=== PATIENT | male | born 1950 | race Caucasian/White ===

== ENCOUNTER 2020-03-09 07:52 | Observation (INO) | payer MEDICARE, OTHER ==
[2020-03-09] MEDS ORDERED: BABY ASPIRIN 81 MG CHEW PO ONE (07:55)
[2020-03-09] MEDS ORDERED: NITRO-BID 2% UD PACKETS TOP ONE (08:07)
--- NOTE | 2020-03-09 08:11 | ERPHSYRPT ---
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 Today pain woke him up from sleep almost an hour ago, moderate intensity and is currently improving. Today he noticed some radiation to the left shoulder as well as to the shoulder blade area. No significant shortness of breath or palpitations reported. Denies any fever chills cough. No sick contact. Timing/Duration: day(s) (2), intermittent, sudden, improved Activities at Onset: sleep Quality: dullness, sharpness Location: central Chest Pain Radiation: back Severity of Pain-Max: moderate Severity of Pain-Current: mild Modifying Factors: Improves With: nothing Associated Symptoms: denies symptoms Prior Chest Pain/Cardiac Workup: cardiac cath, heart attack Nitro Today/Relief: no nitro taken today Aspirin Treatment Today: no aspirin today Allergies/Adverse Reactions: Sulfa (Sulfonamide Antibiotics) Allergy (Verified 03/09/20 08:07) Home Medications: Carvedilol 6.25 mg [Coreg 6.25 MG] 6.25 mg PO BID 01/17/13 [History] Ranolazine 500 MG [Ranexa 500 MG] 500 mg PO BID 01/17/13 [History] ALPRAZolam [Alprazolam] 0.5 mg PO DAILY 03/09/20 [History] Aspirin EC 81 mg [Ecotrin 81 mg] 81 mg PO DAILY 03/09/20 [History] Atorvastatin Calcium [Lipitor] 80 mg PO DAILY 03/09/20 [History] Clopidogrel Bisulfate 75 mg [PLAVIX 75 MG Tablet] 75 mg PO DAILY 03/09/20 [History] Ezetimibe 10 mg [Zetia 10 MG] 10 mg PO DAILY 03/09/20 [History] Folic Acid/Vit B Complex and C [Folbee Plus Tablet] 5 mg PO DAILY 03/09/20 [History] Pantoprazole Sodium 40 mg PO DAILY 03/09/20 [History] Hx Tetanus, Diphtheria Vaccination/Date Given: Yes (UNKNOWN) Hx Influenza Vaccination/Date Given: Yes Hx Pneumococcal Vaccination/Date Given: Yes Travel Risk - International Travel Have you traveled outside of the country in past 3 weeks: No - Coronavirus Screening Are you exhibiting any of the following symptoms?: No Close contact with a COVID-19 positive Pt in past 14-21 Days: No - Review of Systems Constitutional: No Symptoms Eyes: No Symptoms Ears, Nose, & Throat: No Symptoms Respiratory: No Symptoms Cardiac: Chest Pain Abdominal/Gastrointestinal: No Symptoms Genitourinary Symptoms: No Symptoms Musculoskeletal: No Symptoms Skin: No Symptoms Neurological: No Symptoms Psychological: No Symptoms Endocrine: No Symptoms Hematologic/Lymphatic: No Symptoms - Past Medical History Pertinent Past Medical History: Yes Neurological History: No Pertinent History ENT History: No Pertinent History Cardiac History: Coronary Artery Disease, High Cholesterol, Myocardial Infarction (DC) Respiratory History: No Pertinent History Endocrine Medical History: No Pertinent History Musculoskeletal History: No Pertinent History GI Medical History: Hepatitis History: No Pertinent History Psycho-Social History: No Pertinent History Male Reproductive Disorders: No Pertinent History Other Medical History: ampullary cancer - Past Surgical History Past Surgical History: Yes Neuro Surgical History: No Pertinent History Cardiac: Cardiac Stent Respiratory: No Pertinent History Gastrointestinal: Appendectomy Genitourinary: No Pertinent History Musculoskeletal: No Pertinent History Male Surgical History: No Pertinent History Other Surgical History: 4 stents - Social History Smoking Status: Former smoker Exposure to second hand smoke: Yes Drug Use: none Patient Lives Alone: No - Nursing Vital Signs Nursing Vital Signs: Initial Vital Signs Temperature 98.2 F 03/09/20 07:55 Pulse Rate 61 03/09/20 07:55 Respiratory Rate 18 03/09/20 07:55 Blood Pressure 135/84 03/09/20 07:55 O2 Sat by Pulse Oximetry 97 03/09/20 07:55 Pain Scale Pain Intensity 0 - Physical Exam General Appearance: no apparent distress Eye Exam: PERRL/EOMI Ears, Nose, Throat Exam: normal ENT inspection, pharynx normal Neck Exam: normal inspection Respiratory Exam: normal breath sounds, lungs clear Cardiovascular Exam: regular rate/rhythm, normal heart sounds Gastrointestinal/Abdomen Exam: soft, normal bowel sounds, No tenderness Back Exam: normal inspection Extremity Exam: normal inspection, normal range of motion Neurologic Exam: alert, oriented x 3, cooperative Skin Exam: normal color SpO2 Interpretation: normal SpO2: 97 O2 Delivery: Room Air - Course Nursing assessment & vital signs reviewed: Yes EKG Interpreted by Me: RATE (61), Sinus Rhythm, NORMAL AXIS, LAFB, Q-wave (Anteroseptal) Ordered Tests: Active Orders 24 hr Category Date Time Status Heating And Ventilation Engineer STAT Care 03/09/20 07:56 Active EKG-ER Only STAT Care 03/09/20 07:55 Active IV Insertion STAT Care 03/09/20 07:55 Active Oxygen-ED Only Nasal Cannula 2 lpm Care 03/09/20 07:55 Active CHEST 1 VIEW (PORTABLE) Stat Exams 03/09/20 07:56 Completed CHEST WITH CONTRAST [CT] Stat Exams 03/09/20 09:11 Completed CBC W DIFF Stat Lab 03/09/20 08:12 Completed CMP Stat Lab 03/09/20 08:12 Completed D-DIMER QUANTITATIVE Stat Lab 03/09/20 08:30 Completed NT PRO BNP Stat Lab 03/09/20 08:12 Completed TROPONIN Q3H Lab 03/09/20 08:12 Completed TROPONIN Q3H Lab 03/09/20 11:10 Completed TROPONIN Q3H Lab 03/09/20 14:00 Ordered TROPONIN Q3H Lab 03/09/20 17:00 Ordered TROPONIN Q3H Lab 03/09/20 20:00 Ordered Transfer Order Routine Transfer 03/09/20 Ordered Medication Summary Discontinued Medications Generic Name Dose Route Start Last Admin Trade Name Freq PRN Reason Stop Dose Admin Aspirin 324 mg 03/09/20 07:55 03/09/20 08:02 Baby Aspirin 81 Mg Chew PO 03/09/20 07:56 324 mg STAT ONE Administration Nitroglycerin 1 gm 03/09/20 08:07 03/09/20 08:16 Nitro-Bid 2% Ud Packets TOP 03/09/20 08:08 1 gm STAT ONE Administration Nitroglycerin Confirm 03/09/20 08:15 Nitro-Bid 2% Ud Packets Administered 03/09/20 08:16 Dose 1 gm .ROUTE .STK-MED ONE Lab/Rad Data: Laboratory Result Diagrams 03/09/20 08:12 03/09/20 08:12 Laboratory Results 03/09/20 03/09/20 03/09/20 Range/Units 11:10 08:30 08:12 WBC (4.0-10.5) K/mm3 RBC (4.1-5.6) M/mm3 Hgb (12.5-18.0) gm/dl Hct (42-50) % MCV (78-100) fl MCH (26-32) pg MCHC (32-36) g/dl RDW (11.5-14.0) % Plt Count (150-450) K/mm3 MPV (7.5-11.0) fl Gran % (36.0-66.0) % Eos # (Auto) (0-0.5) Absolute Lymphs (auto) (1.0-4.6) Absolute Monos (auto) (0.0-1.3) Lymphocytes % (24.0-44.0) % Monocytes % (0.0-12.0) % Eosinophils % (0.00-5.0) % Basophils % (0.0-0.4) % Absolute Granulocytes (1.4-6.9) Basophils # (0-0.4) D-Dimer 905 H* (215-500) ng/mL Sodium (137-145) mmol/L Potassium (3.5-5.1) mmol/L Chloride (98-107) mmol/L Carbon Dioxide (22-30) mmol/L Anion Gap (5-15) MEQ/L BUN (9-20) mg/dL Creatinine (0.66-1.25) mg/dL Estimated GFR ML/MIN Glucose (74-106) mg/dL Calcium (8.4-10.2) mg/dL Total Bilirubin (0.2-1.3) mg/dL AST (17-59) U/L ALT (0-50) U/L Alkaline Phosphatase (38-126) U/L Troponin I < 0.012 < 0.012 (0.000-0.034) ng/mL NT-Pro-B Natriuret Pep (0-900) pg/mL Serum Total Protein (6.3-8.2) g/dL Albumin (3.5-5.0) g/dL 03/09/20 03/09/20 Range/Units 08:12 08:12 WBC 8.1 (4.0-10.5) K/mm3 RBC 4.01 L (4.1-5.6) M/mm3 Hgb 12.5 (12.5-18.0) gm/dl Hct 38.5 L (42-50) % MCV 96.0 (78-100) fl MCH 31.2 (26-32) pg MCHC 32.5 (32-36) g/dl RDW 15.1 H (11.5-14.0) % Plt Count 203 (150-450) K/mm3 MPV 9.8 (7.5-11.0) fl Gran % 62.7 (36.0-66.0) % Eos # (Auto) 0.31 (0-0.5) Absolute Lymphs (auto) 1.92 (1.0-4.6) Absolute Monos (auto) 0.73 (0.0-1.3) Lymphocytes % 23.9 L (24.0-44.0) % Monocytes % 9.1 (0.0-12.0) % Eosinophils % 3.9 (0.00-5.0) % Basophils % 0.4 (0.0-0.4) % Absolute Granulocytes 5.06 (1.4-6.9) Basophils # 0.03 (0-0.4) D-Dimer (215-500) ng/mL Sodium 135 L (137-145) mmol/L Potassium 4.2 (3.5-5.1) mmol/L Chloride 102 (98-107) mmol/L Carbon Dioxide 28 (22-30) mmol/L Anion Gap 9.8 (5-15) MEQ/L BUN 13 (9-20) mg/dL Creatinine 0.90 (0.66-1.25) mg/dL Estimated GFR > 60.0 ML/MIN Glucose 241 H (74-106) mg/dL Calcium 9.3 (8.4-10.2) mg/dL Total Bilirubin 1.40 H (0.2-1.3) mg/dL AST 61 H (17-59) U/L ALT 67 H (0-50) U/L Alkaline Phosphatase 79 (38-126) U/L Troponin I (0.000-0.034) ng/mL NT-Pro-B Natriuret Pep 50.3 (0-900) pg/mL Serum Total Protein 7.8 (6.3-8.2) g/dL Albumin 4.2 (3.5-5.0) g/dL - Progress Progress: improved, re-examined Air Movement: good Progress Note: 03/09/20 10:06 He is given aspirin and Nitropaste for symptomatic relief. Patient is breathing better on reevaluation. He does not want any other pain medications. EKG did not show any acute ST elevations. Initial troponins are negative. X-rays did not show any focal consolidation. CT chest is obtained to rule out PE as patient has elevated D-dimers which is negative for pulmonary embolism. It showed questionable airspace disease but patient does not have any symptoms so I will not start him on any antibiotics. Discussed with Dr. Fletcher and patient is being admitted for rule out DC as patient has multiple risk factors for CAD and his high heart score. Plan discussed with patient who understand and agrees with it. Blood Culture(s) Obtained: No Antibiotics given: No Discussed with : Gareth Will see patient in: hospital (observation) Counseled pt/family regarding: lab results, diagnosis, rad results - Departure Departure Disposition: Observation Clinical Impression: Chest pain, rule out acute myocardial infarction Condition: Stable Critical Care Time: No Referrals: ALISIA FLETCHER MD [Primary Care Provider] -
[2020-03-09] MEDS ORDERED: NITRO-BID 2% UD PACKETS ONE (08:15)
[2020-03-09 08:27] LABS: Absolute Neutrophil Ct (ANC) 5.06 (1.4-6.9); BASOPHIL % 0.4 % (0.0-0.4); Basophil (Absolute #) 0.03 (0-0.4); Eosinophil % 3.9 % (0.00-5.0); Eosinophil (Absolute #) 0.31 (0-0.5); Hematocrit 38.5 % (42-50); Hemoglobin 12.5 gm/dl (12.5-18.0); Lymphocyte (Absolute #) 1.92 (1.0-4.6); Lymphocytes % 23.9 % (24.0-44.0); Mean Corpuscular Hemoglobin 31.2 pg (26-32); Mean Corpuscular Hgb Concent. 32.5 g/dl (32-36); Mean Platelet Volume 9.8 fl (7.5-11.0); Monocyte (Absolute #) 0.73 (0.0-1.3); Monocytes % 9.1 % (0.0-12.0); Neutrophil % 62.7 % (36.0-66.0); Platelet Count 203 K/mm3 (150-450); Red Blood Count 4.01 M/mm3 (4.1-5.6); Red Cell Distribution Width 15.1 % (11.5-14.0); White Blood Count 8.1 K/mm3 (4.0-10.5)
[2020-03-09 08:37] LABS: ALBUMIN 4.2 g/dL (3.5-5.0); ALKALINE PHOSPHATASE 79 U/L (38-126); ANION GAP 9.8 MEQ/L (5-15); BLOOD UREA NITROGEN 13 mg/dL (9-20); CHLORIDE 102 mmol/L (98-107); Calcium 9.3 mg/dL (8.4-10.2); Carbon Dioxide 28 mmol/L (22-30); EST GLOMERULAR FILTRATION RATE > 60.0 ML/MIN; Glucose 241 mg/dL (74-106); NT PRO BNP 50.3 pg/mL (0-900); Potassium 4.2 mmol/L (3.5-5.1); SGOT/AST 61 U/L (17-59); SGPT/ALT 67 U/L (0-50); SODIUM 135 mmol/L (137-145); Total Protein 7.8 g/dL (6.3-8.2)
--- NOTE | 2020-03-09 08:58 | XRAY ---
Indication: Chest pain. Comparison: November 25, 2018. Portable chest again demonstrates normal heart and lungs with incidental tiny calcified granulomas and new right Port-A-Cath. Bony thorax intact again with minimal degenerative changes. No acute findings.
--- NOTE | 2020-03-09 10:31 | XRAY ---
Indication: Chest pain. Elevated d-dimer. History ampullary cancer with Whipple procedure. Status post chemotherapy. Multiple contiguous axial images obtained through the chest using 100 cc Isovue 370 contrast and PE protocol. Comparison: April 29, 2008. There is good opacification of the pulmonary arteries to include the lobar and segmental branches. No pulmonary embolus. Heart is not enlarged. New right Port-A-Cath. Aorta remains normal in course and caliber. There is minimally enlarging mediastinal lymph nodes again largest right paratracheal measuring 1.1 x 2.8 cm. Minimally enlarging right hilar adenopathy measuring 1.8 x 2.0 cm. Stable 1.2 x 2.3 cm left axilla adenopathy. Lungs demonstrates new minimal patchy peripheral airspace disease in the left upper and right lower lobes. Elsewhere minimal bilateral dependent atelectasis with stable calcific granulomas bilaterally. No consolidation or effusion. Bony thorax intact. Limited upper abdomen demonstrates interval surgery including cholecystectomy/Whipple procedure with now mild biliary tree prominence and pancreatic duct dilatation up to 7 mm. New multiple scattered centimeter/subcentimeter mesenteric nodes. Stable 4 mm peripheral right lobe hepatic cyst. Impression: 1. Continued negative pulmonary embolus. 2. New minimal patchy left upper and right lower lobe airspace disease without consolidation/effusion. 3. Minimally enlarging mediastinal/right hilar lymph nodes and new small mesenteric nodes. Stable left axilla adenopathy. Rule out primary versus metastatic malignancy. 4. Status post cholecystectomy/Whipple procedure and right Port-A-Cath insertion. 5. Stable tiny hepatic cyst.
[2020-03-09] MEDS ORDERED: PROTONIX 40 MG IV IV SCH (14:49)
[2020-03-09] MEDS ORDERED: MORPHINE SULFATE 2 MG INJ IV PRN (14:49)
[2020-03-09] MEDS ORDERED: Zofran 4 MG/2 ML VIAL IV PRN (14:49)
[2020-03-09] MEDS ORDERED: DUONEB 0.5-3 MG/3 ml Neb IH PRN (14:49)
[2020-03-09] MEDS: TYLENOL 325 MG PO PRN ×2 (15:41→21:13)
[2020-03-09] MEDS ORDERED: Coreg 6.25 MG PO SCH (22:00)
[2020-03-09] MEDS ORDERED: Ranexa 500 MG PO SCH (22:00)
[2020-03-10 06:01] LABS: Absolute Neutrophil Ct (ANC) 7.59 (1.4-6.9); BASOPHIL % 0.4 % (0.0-0.4); Basophil (Absolute #) 0.04 (0-0.4); Eosinophil % 4.5 % (0.00-5.0); Hematocrit 37.9 % (42-50); Hemoglobin 12.4 gm/dl (12.5-18.0); Lymphocyte (Absolute #) 2.14 (1.0-4.6); Lymphocytes % 19.2 % (24.0-44.0); Mean Cell Volume 96.4 fl (78-100); Mean Corpuscular Hemoglobin 31.6 pg (26-32); Mean Corpuscular Hgb Concent. 32.7 g/dl (32-36); Mean Platelet Volume 10.2 fl (7.5-11.0); Monocyte (Absolute #) 0.85 (0.0-1.3); Monocytes % 7.6 % (0.0-12.0); Neutrophil % 68.3 % (36.0-66.0); Platelet Count 204 K/mm3 (150-450); Red Blood Count 3.93 M/mm3 (4.1-5.6); White Blood Count 11.1 K/mm3 (4.0-10.5)
[2020-03-10 06:27] LABS: ALKALINE PHOSPHATASE 74 U/L (38-126); BLOOD UREA NITROGEN 15 mg/dL (9-20); CHLORIDE 103 mmol/L (98-107); Carbon Dioxide 27 mmol/L (22-30); Creatinine 1 0.98 mg/dL (0.66-1.25); EST GLOMERULAR FILTRATION RATE > 60.0 ML/MIN; Glucose 134 mg/dL (74-106); Potassium 4.1 mmol/L (3.5-5.1); SGOT/AST 49 U/L (17-59); SGPT/ALT 57 U/L (0-50); SODIUM 137 mmol/L (137-145); Total Protein 7.4 g/dL (6.3-8.2)
[2020-03-10 08:07] VITALS: BP 126/73; PULSE 63; O2SAT 96
[2020-03-10] MEDS ORDERED: ECOTRIN 81 MG PO SCH (10:00)
[2020-03-10] MEDS ORDERED: Protonix 40MG Tablet PO SCH (10:00)
[2020-03-10] MEDS ORDERED: NON-FORMULARY ITEM (Folic Acid/Vit B Complex And C [Folbee Plus Tablet] 5 MG) PO SCH (10:00)
[2020-03-10] MEDS ORDERED: NON-FORMULARY ITEM (Atorvastatin Calcium [Lipitor] 80 MG) PO SCH (10:00)
[2020-03-10] MEDS ORDERED: FOLTX (FOLBIC) PO SCH (10:00)
[2020-03-10] MEDS ORDERED: ZOCOR 20MG PO SCH (10:00)
[2020-03-10] MEDS ORDERED: xanAX 0.5 MG PO SCH (10:00)
[2020-03-10] MEDS ORDERED: Zetia 10 MG PO SCH (10:00)
[2020-03-10] MEDS ORDERED: PLAVIX 75 MG Tablet PO SCH (10:00)
--- NOTE | 2020-03-10 10:38 | PCM.SSS ---
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 Today pain woke him up from sleep almost an hour ago, moderate intensity and is currently improving. Today he noticed some radiation to the left shoulder as well as to the shoulder blade area. No significant shortness of breath or palpitations reported. Denies any fever chills cough. No sick contact. - Review of Systems Constitutional: No Fever, No Chills Eyes: No Symptoms Ears, Nose, & Throat: No Symptoms Respiratory: No Cough, No Short Of Breath Cardiac: Chest Pain, No Edema, No Syncope Abdominal/Gastrointestinal: No Abdominal Pain, No Nausea, No Vomiting, No Diarrhea Genitourinary Symptoms: No Dysuria Musculoskeletal: No Back Pain, No Neck Pain Skin: No Rash Neurological: No Dizziness, No Focal Weakness, No Sensory Changes Psychological: No Symptoms Endocrine: No Symptoms Hematologic/Lymphatic: No Symptoms Immunological/Allergic: No Symptoms Medications & Allergies Home Medications: Home Medication List Carvedilol 6.25 mg [Coreg 6.25 MG] 6.25 mg PO BID 01/17/13 [History Confirmed 03/09/20] Ranolazine 500 MG [Ranexa 500 MG] 500 mg PO BID 01/17/13 [History Confirmed 03/09/20] ALPRAZolam [Alprazolam] 0.5 mg PO DAILY 03/09/20 [History Confirmed 03/09/20] Aspirin EC 81 mg [Ecotrin 81 mg] 81 mg PO DAILY 03/09/20 [History Confirmed 03/09/20] Atorvastatin Calcium [Lipitor] 80 mg PO DAILY 03/09/20 [History Confirmed 03/09/20] Clopidogrel Bisulfate 75 mg [PLAVIX 75 MG Tablet] 75 mg PO DAILY 03/09/20 [History Confirmed 03/09/20] Ezetimibe 10 mg [Zetia 10 MG] 10 mg PO DAILY 03/09/20 [History Confirmed 03/09/20] Folic Acid/Vit B Complex and C [Folbee Plus Tablet] 5 mg PO DAILY 03/09/20 [History Confirmed 03/09/20] Pantoprazole Sodium 40 mg PO DAILY 03/09/20 [History Confirmed 03/09/20] Allergies/Adverse Reactions: Allergies Allergy/AdvReac Type Severity Reaction Status Date / Time Sulfa (Sulfonamide Allergy Mild Verified 03/09/20 15:00 Antibiotics) - Past Medical History Past Medical History: Yes Neurological History: No Pertinent History ENT History: No Pertinent History Cardiac History: Coronary Artery Disease, High Cholesterol, Myocardial Infarction ([place]) Respiratory History: No Pertinent History Endocrine Medical History: No Pertinent History Musculoskelatal History: No Pertinent History GI Medical History: Hepatitis History: No Pertinent History Pyscho-Social History: No Pertinent History Male Reproductive Disorders: No Pertinent History Comment: ampullary cancer - Past Surgical History Past Surgical History: Yes Neuro Surgical History: No Pertinent History Cardiac History: Cardiac Stent Respiratory Surgery: No Pertinent History GI Surgical History: Appendectomy, Cholecystectomy Genitourinary Surgical Hx: No Pertinent History Musculskeletal Surgical Hx: No Pertinent History Male Surgical History: No Pertinent History Other Surgical History: 4 stents, 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 - Social History Smoking Status: Former smoker Exposure to second hand smoke: Yes Alcohol: None Drug Use: none - Physical Exam Vital Signs: Vital Signs - 24 hr Temp Pulse Resp BP Pulse Ox 03/10/20 08:06 98.7 F 63 16 126/73 96 03/10/20 03:44 98.0 F 68 20 122/57 97 03/09/20 23:21 97.6 F 60 20 114/65 97 03/09/20 19:39 98.0 F 54 L 18 120/68 96 03/09/20 19:20 65 15 95 03/09/20 15:48 56 L 20 95 03/09/20 15:22 98.2 F 76 101/64 97 03/09/20 14:49 98.2 F 66 18 113/67 97 03/09/20 14:25 97 03/09/20 14:22 76 12 101/64 97 03/09/20 13:53 56 L 18 99/61 97 03/09/20 11:00 54 L 18 103/66 95 General Appearance: no apparent distress, alert Neurologic Exam: alert, oriented x 3, cooperative, normal mood/affect, nml cerebellar function, nml station & gait, sensation nml, No motor deficits Eye Exam: PERRL/EOMI, eyes nml inspection Ears, Nose, Throat Exam: normal ENT inspection, TMs normal, pharynx normal, moist mucous membranes Neck Exam: normal inspection, non-tender, supple, full range of motion Respiratory Exam: normal breath sounds, lungs clear, No respiratory distress Cardiovascular Exam: regular rate/rhythm, normal heart sounds, normal peripheral pulses Gastrointestinal/Abdomen Exam: soft, normal bowel sounds, No tenderness, No mass Back Exam: normal inspection, normal range of motion, No CVA tenderness, No vertebral tenderness Extremity Exam: normal inspection, normal range of motion, pelvis stable Skin Exam: normal color, warm, dry, No rash Lymphatic Exam: No adenopathy Results - Labs Lab/Micro Results: Lab Results-Last 24 Hours 03/09/20 03/09/20 03/09/20 Range/Units 11:10 14:42 16:15 WBC (4.0-10.5) K/mm3 RBC (4.1-5.6) M/mm3 Hgb (12.5-18.0) gm/dl Hct (42-50) % MCV (78-100) fl MCH (26-32) pg MCHC (32-36) g/dl RDW (11.5-14.0) % Plt Count (150-450) K/mm3 MPV (7.5-11.0) fl Gran % (36.0-66.0) % Eos # (Auto) (0-0.5) Absolute Lymphs (auto) (1.0-4.6) Absolute Monos (auto) (0.0-1.3) Lymphocytes % (24.0-44.0) % Monocytes % (0.0-12.0) % Eosinophils % (0.00-5.0) % Basophils % (0.0-0.4) % Absolute Granulocytes (1.4-6.9) Basophils # (0-0.4) Sodium (137-145) mmol/L Potassium (3.5-5.1) mmol/L Chloride (98-107) mmol/L Carbon Dioxide (22-30) mmol/L Anion Gap (5-15) MEQ/L BUN (9-20) mg/dL Creatinine (0.66-1.25) mg/dL Estimated GFR ML/MIN Glucose (74-106) mg/dL POC Glucometer (74 to 106) mg/dL Hemoglobin A1c 6.65 H (4.5-6.0) % Calcium (8.4-10.2) mg/dL Total Bilirubin (0.2-1.3) mg/dL AST (17-59) U/L ALT (0-50) U/L Alkaline Phosphatase (38-126) U/L Troponin I < 0.012 < 0.012 (0.000-0.034) ng/mL Serum Total Protein (6.3-8.2) g/dL Albumin (3.5-5.0) g/dL 03/09/20 03/09/20 03/09/20 Range/Units 16:28 17:00 20:30 WBC (4.0-10.5) K/mm3 RBC (4.1-5.6) M/mm3 Hgb (12.5-18.0) gm/dl Hct (42-50) % MCV (78-100) fl MCH (26-32) pg MCHC (32-36) g/dl RDW (11.5-14.0) % Plt Count (150-450) K/mm3 MPV (7.5-11.0) fl Gran % (36.0-66.0) % Eos # (Auto) (0-0.5) Absolute Lymphs (auto) (1.0-4.6) Absolute Monos (auto) (0.0-1.3) Lymphocytes % (24.0-44.0) % Monocytes % (0.0-12.0) % Eosinophils % (0.00-5.0) % Basophils % (0.0-0.4) % Absolute Granulocytes (1.4-6.9) Basophils # (0-0.4) Sodium (137-145) mmol/L Potassium (3.5-5.1) mmol/L Chloride (98-107) mmol/L Carbon Dioxide (22-30) mmol/L Anion Gap (5-15) MEQ/L BUN (9-20) mg/dL Creatinine (0.66-1.25) mg/dL Estimated GFR ML/MIN Glucose (74-106) mg/dL POC Glucometer 116 H (74 to 106) mg/dL Hemoglobin A1c (4.5-6.0) % Calcium (8.4-10.2) mg/dL Total Bilirubin (0.2-1.3) mg/dL AST (17-59) U/L ALT (0-50) U/L Alkaline Phosphatase (38-126) U/L Troponin I < 0.012 < 0.012 (0.000-0.034) ng/mL Serum Total Protein (6.3-8.2) g/dL Albumin (3.5-5.0) g/dL 03/10/20 03/10/20 Range/Units 04:00 04:55 WBC 11.1 H (4.0-10.5) K/mm3 RBC 3.93 L (4.1-5.6) M/mm3 Hgb 12.4 L (12.5-18.0) gm/dl Hct 37.9 L (42-50) % MCV 96.4 (78-100) fl MCH 31.6 (26-32) pg MCHC 32.7 (32-36) g/dl RDW 15.0 H (11.5-14.0) % Plt Count 204 (150-450) K/mm3 MPV 10.2 (7.5-11.0) fl Gran % 68.3 H (36.0-66.0) % Eos # (Auto) 0.50 (0-0.5) Absolute Lymphs (auto) 2.14 (1.0-4.6) Absolute Monos (auto) 0.85 (0.0-1.3) Lymphocytes % 19.2 L (24.0-44.0) % Monocytes % 7.6 (0.0-12.0) % Eosinophils % 4.5 (0.00-5.0) % Basophils % 0.4 (0.0-0.4) % Absolute Granulocytes 7.59 H (1.4-6.9) Basophils # 0.04 (0-0.4) Sodium 137 (137-145) mmol/L Potassium 4.1 (3.5-5.1) mmol/L Chloride 103 (98-107) mmol/L Carbon Dioxide 27 (22-30) mmol/L Anion Gap 11.0 (5-15) MEQ/L BUN 15 (9-20) mg/dL Creatinine 0.98 (0.66-1.25) mg/dL Estimated GFR > 60.0 ML/MIN Glucose 134 H (74-106) mg/dL POC Glucometer (74 to 106) mg/dL Hemoglobin A1c (4.5-6.0) % Calcium 9.0 (8.4-10.2) mg/dL Total Bilirubin 1.50 H (0.2-1.3) mg/dL AST 49 (17-59) U/L ALT 57 H (0-50) U/L Alkaline Phosphatase 74 (38-126) U/L Troponin I (0.000-0.034) ng/mL Serum Total Protein 7.4 (6.3-8.2) g/dL Albumin 4.0 (3.5-5.0) g/dL - Radiology Impressions Radiology Exams & Impressions: Radiology Procedures Category Date Time Status CHEST 1 VIEW (PORTABLE) Stat Exams 03/09/20 07:56 Completed CHEST WITH CONTRAST [CT] Stat Exams 03/09/20 09:11 Completed - Other Procedures and Tests Respiratory Therapy 03/09/20 15:13 Respiratory Therapy Assessment DAILY Assessment/Plan (1) Chest pain, rule out acute myocardial infarction Current Visit: Yes Status: Resolved Assessment & Plan: Laboratory Results 03/10/20 03/10/20 03/09/20 Range/Units 04:55 04:00 20:30 WBC 11.1 H (4.0-10.5) K/mm3 RBC 3.93 L (4.1-5.6) M/mm3 Hgb 12.4 L (12.5-18.0) gm/dl Hct 37.9 L (42-50) % MCV 96.4 (78-100) fl MCH 31.6 (26-32) pg MCHC 32.7 (32-36) g/dl RDW 15.0 H (11.5-14.0) % Plt Count 204 (150-450) K/mm3 MPV 10.2 (7.5-11.0) fl Gran % 68.3 H (36.0-66.0) % Eos # (Auto) 0.50 (0-0.5) Absolute Lymphs (auto) 2.14 (1.0-4.6) Absolute Monos (auto) 0.85 (0.0-1.3) Lymphocytes % 19.2 L (24.0-44.0) % Monocytes % 7.6 (0.0-12.0) % Eosinophils % 4.5 (0.00-5.0) % Basophils % 0.4 (0.0-0.4) % Absolute Granulocytes 7.59 H (1.4-6.9) Basophils # 0.04 (0-0.4) D-Dimer (215-500) ng/mL Sodium 137 (137-145) mmol/L Potassium 4.1 (3.5-5.1) mmol/L Chloride 103 (98-107) mmol/L Carbon Dioxide 27 (22-30) mmol/L Anion Gap 11.0 (5-15) MEQ/L BUN 15 (9-20) mg/dL Creatinine 0.98 (0.66-1.25) mg/dL Estimated GFR > 60.0 ML/MIN Glucose 134 H (74-106) mg/dL POC Glucometer (74 to 106) mg/dL Hemoglobin A1c (4.5-6.0) % Calcium 9.0 (8.4-10.2) mg/dL Total Bilirubin 1.50 H (0.2-1.3) mg/dL AST 49 (17-59) U/L ALT 57 H (0-50) U/L Alkaline Phosphatase 74 (38-126) U/L Troponin I < 0.012 (0.000-0.034) ng/mL NT-Pro-B Natriuret Pep (0-900) pg/mL Serum Total Protein 7.4 (6.3-8.2) g/dL Albumin 4.0 (3.5-5.0) g/dL 03/09/20 03/09/20 03/09/20 Range/Units 17:00 16:28 16:15 WBC (4.0-10.5) K/mm3 RBC (4.1-5.6) M/mm3 Hgb (12.5-18.0) gm/dl Hct (42-50) % MCV (78-100) fl MCH (26-32) pg MCHC (32-36) g/dl RDW (11.5-14.0) % Plt Count (150-450) K/mm3 MPV (7.5-11.0) fl Gran % (36.0-66.0) % Eos # (Auto) (0-0.5) Absolute Lymphs (auto) (1.0-4.6) Absolute Monos (auto) (0.0-1.3) Lymphocytes % (24.0-44.0) % Monocytes % (0.0-12.0) % Eosinophils % (0.00-5.0) % Basophils % (0.0-0.4) % Absolute Granulocytes (1.4-6.9) Basophils # (0-0.4) D-Dimer (215-500) ng/mL Sodium (137-145) mmol/L Potassium (3.5-5.1) mmol/L Chloride (98-107) mmol/L Carbon Dioxide (22-30) mmol/L Anion Gap (5-15) MEQ/L BUN (9-20) mg/dL Creatinine (0.66-1.25) mg/dL Estimated GFR ML/MIN Glucose (74-106) mg/dL POC Glucometer 116 H (74 to 106) mg/dL Hemoglobin A1c 6.65 H (4.5-6.0) % Calcium (8.4-10.2) mg/dL Total Bilirubin (0.2-1.3) mg/dL AST (17-59) U/L ALT (0-50) U/L Alkaline Phosphatase (38-126) U/L Troponin I < 0.012 (0.000-0.034) ng/mL NT-Pro-B Natriuret Pep (0-900) pg/mL Serum Total Protein (6.3-8.2) g/dL Albumin (3.5-5.0) g/dL 03/09/20 03/09/20 03/09/20 Range/Units 14:42 11:10 08:30 WBC (4.0-10.5) K/mm3 RBC (4.1-5.6) M/mm3 Hgb (12.5-18.0) gm/dl Hct (42-50) % MCV (78-100) fl MCH (26-32) pg MCHC (32-36) g/dl RDW (11.5-14.0) % Plt Count (150-450) K/mm3 MPV (7.5-11.0) fl Gran % (36.0-66.0) % Eos # (Auto) (0-0.5) Absolute Lymphs (auto) (1.0-4.6) Absolute Monos (auto) (0.0-1.3) Lymphocytes % (24.0-44.0) % Monocytes % (0.0-12.0) % Eosinophils % (0.00-5.0) % Basophils % (0.0-0.4) % Absolute Granulocytes (1.4-6.9) Basophils # (0-0.4) D-Dimer 905 H* (215-500) ng/mL Sodium (137-145) mmol/L Potassium (3.5-5.1) mmol/L Chloride (98-107) mmol/L Carbon Dioxide (22-30) mmol/L Anion Gap (5-15) MEQ/L BUN (9-20) mg/dL Creatinine (0.66-1.25) mg/dL Estimated GFR ML/MIN Glucose (74-106) mg/dL POC Glucometer (74 to 106) mg/dL Hemoglobin A1c (4.5-6.0) % Calcium (8.4-10.2) mg/dL Total Bilirubin (0.2-1.3) mg/dL AST (17-59) U/L ALT (0-50) U/L Alkaline Phosphatase (38-126) U/L Troponin I < 0.012 < 0.012 (0.000-0.034) ng/mL NT-Pro-B Natriuret Pep (0-900) pg/mL Serum Total Protein (6.3-8.2) g/dL Albumin (3.5-5.0) g/dL 03/09/20 03/09/20 03/09/20 Range/Units 08:12 08:12 08:12 WBC 8.1 (4.0-10.5) K/mm3 RBC 4.01 L (4.1-5.6) M/mm3 Hgb 12.5 (12.5-18.0) gm/dl Hct 38.5 L (42-50) % MCV 96.0 (78-100) fl MCH 31.2 (26-32) pg MCHC 32.5 (32-36) g/dl RDW 15.1 H (11.5-14.0) % Plt Count 203 (150-450) K/mm3 MPV 9.8 (7.5-11.0) fl Gran % 62.7 (36.0-66.0) % Eos # (Auto) 0.31 (0-0.5) Absolute Lymphs (auto) 1.92 (1.0-4.6) Absolute Monos (auto) 0.73 (0.0-1.3) Lymphocytes % 23.9 L (24.0-44.0) % Monocytes % 9.1 (0.0-12.0) % Eosinophils % 3.9 (0.00-5.0) % Basophils % 0.4 (0.0-0.4) % Absolute Granulocytes 5.06 (1.4-6.9) Basophils # 0.03 (0-0.4) D-Dimer (215-500) ng/mL Sodium 135 L (137-145) mmol/L Potassium 4.2 (3.5-5.1) mmol/L Chloride 102 (98-107) mmol/L Carbon Dioxide 28 (22-30) mmol/L Anion Gap 9.8 (5-15) MEQ/L BUN 13 (9-20) mg/dL Creatinine 0.90 (0.66-1.25) mg/dL Estimated GFR > 60.0 ML/MIN Glucose 241 H (74-106) mg/dL POC Glucometer (74 to 106) mg/dL Hemoglobin A1c (4.5-6.0) % Calcium 9.3 (8.4-10.2) mg/dL Total Bilirubin 1.40 H (0.2-1.3) mg/dL AST 61 H (17-59) U/L ALT 67 H (0-50) U/L Alkaline Phosphatase 79 (38-126) U/L Troponin I < 0.012 (0.000-0.034) ng/mL NT-Pro-B Natriuret Pep 50.3 (0-900) pg/mL Serum Total Protein 7.8 (6.3-8.2) g/dL Albumin 4.2 (3.5-5.0) g/dL Code(s): R07.9 - CHEST PAIN, UNSPECIFIED (2) Chest pain Current Visit: No Status: Acute Code(s): R07.9 - CHEST PAIN, UNSPECIFIED (3) Coronary artery disease Current Visit: No Status: Acute Code(s): I25.10 - ATHSCL HEART DISEASE OF [place] CORONARY ARTERY W/O [facility] Summary - Hospital Course Hospital Course: Chief Complaint Diagnosis CHEST PAIN RULE OUT [place] Allergies Allergy/AdvReac Type Severity Reaction Status Date / Time Sulfa (Sulfonamide Allergy Mild Verified 03/09/20 15:00 Antibiotics) Vital Signs (Last 24 hours) Temp Pulse Resp BP Pulse Ox 03/10/20 08:06 98.7 F 63 16 126/73 96 03/10/20 03:44 98.0 F 68 20 122/57 97 03/09/20 23:21 97.6 F 60 20 114/65 97 03/09/20 19:39 98.0 F 54 L 18 120/68 96 03/09/20 19:20 65 15 95 03/09/20 15:48 56 L 20 95 03/09/20 15:22 98.2 F 76 101/64 97 03/09/20 14:49 98.2 F 66 18 113/67 97 03/09/20 14:25 97 03/09/20 14:22 76 12 101/64 97 03/09/20 13:53 56 L 18 99/61 97 03/09/20 11:00 54 L 18 103/66 95 Home Medications Medication Instructions Recorded Confirmed Last Taken Type ALPRAZolam [Alprazolam] 0.5 mg PO DAILY 03/09/20 03/09/20 03/09/20 History Aspirin EC 81 mg [Ecotrin 81 81 mg PO DAILY 03/09/20 03/09/20 03/09/20 History mg] Atorvastatin Calcium [Lipitor] 80 mg PO DAILY 03/09/20 03/09/20 03/09/20 History Clopidogrel Bisulfate 75 mg 75 mg PO DAILY 03/09/20 03/09/20 03/09/20 History [PLAVIX 75 MG Tablet] Ezetimibe 10 mg [Zetia 10 MG] 10 mg PO DAILY 03/09/20 03/09/20 03/09/20 History Folic Acid/Vit B Complex and C 5 mg PO DAILY 12/03/09/20 03/09/20 History [Folbee Plus Tablet] Pantoprazole Sodium 40 mg PO DAILY 03/09/20 03/09/20 03/09/20 History Current Medications Generic Name Dose Route Start Last Admin Trade Name Freq PRN Reason Stop Dose Admin Acetaminophen 650 mg 03/09/20 14:49 03/09/20 21:13 Tylenol 325 Mg PO 04/08/20 14:48 650 mg Q4H PRN PRN Administration PAIN AND/OR FEVER Alprazolam 0.5 mg 03/10/20 10:00 Xanax 0.5 Mg PO 04/09/20 09:59 DAILY CLAUDINE Aspirin 81 mg 03/10/20 10:00 Ecotrin 81 Mg PO 04/09/20 09:59 DAILY CLAUDINE Carvedilol 6.25 mg 03/09/20 22:00 03/09/20 21:12 Coreg 6.25 Mg PO 04/08/20 21:59 6.25 mg BID CLAUDINE Administration Clopidogrel Bisulfate 75 mg 03/10/20 10:00 Plavix 75 Mg Tablet PO 04/09/20 09:59 DAILY CLAUDINE Ezetimibe 10 mg 03/10/20 10:00 Zetia 10 Mg PO 04/09/20 09:59 DAILY CLAUDINE Folic Acid 1 tab 03/10/20 10:00 Foltx (Folbic) PO 04/09/20 09:59 DAILY CLAUDINE Morphine Sulfate 2 mg 03/09/20 14:49 Morphine Sulfate 2 Mg Inj IV 03/14/20 14:48 Q4H PRN PRN PAIN Ondansetron HCl 4 mg 03/09/20 14:49 Zofran 4 Mg/2 Ml Vial IV 04/08/20 14:48 Q6H PRN PRN NAUSEA/VOMITING Pantoprazole Sodium 40 mg 03/09/20 14:49 03/09/20 15:59 Protonix 40 Mg Iv IV 04/08/20 14:48 40 mg Q24H10 CLAUDINE Administration Pantoprazole Sodium 40 mg 03/10/20 10:00 Protonix 40mg Tablet PO 04/09/20 09:59 DAILY CLAUDINE Ranolazine 500 mg 03/09/20 22:00 03/09/20 21:12 Ranexa 500 Mg PO 04/08/20 21:59 500 mg BID CLAUDINE Administration Simvastatin 40 mg 03/10/20 10:00 Zocor 20mg PO 04/09/20 09:59 DAILY CLAUDINE Discontinued Medications Generic Name Dose Route Start Last Admin Trade Name Freq PRN Reason Stop Dose Admin Albuterol/Ipratropium 3 ml 03/09/20 14:49 Duoneb 0.5-3 Mg/3 Ml Neb IH 04/08/20 14:48 Q4HPRN PRN SHORTNESS OF BREATH/WHEEZING Aspirin 324 mg 03/09/20 07:55 03/09/20 08:02 Baby Aspirin 81 Mg Chew PO 03/09/20 07:56 324 mg STAT ONE Administration Nitroglycerin 1 gm 03/09/20 08:07 03/09/20 08:16 Nitro-Bid 2% Ud Packets TOP 03/09/20 08:08 1 gm STAT ONE Administration Nitroglycerin Confirm 03/09/20 08:15 Nitro-Bid 2% Ud Packets Administered 03/09/20 08:16 Dose 1 gm .ROUTE .STK-MED ONE Intake & Output (Last 24 hours) 03/07/20 03/08/20 03/09/20 03/10/20 11:59 11:59 11:59 11:59 Intake Total 580 Balance 580 Weight 86.183 kg 86.5 kg Laboratory Results (Last 24 hours) 03/10/20 03/10/20 03/09/20 04:55 04:00 20:30 WBC 11.1 H RBC 3.93 L Hgb 12.4 L Hct 37.9 L MCV 96.4 MCH 31.6 MCHC 32.7 RDW 15.0 H Plt Count 204 MPV 10.2 Gran % 68.3 H Eos # (Auto) 0.50 Absolute Lymphs (auto) 2.14 Absolute Monos (auto) 0.85 Lymphocytes % 19.2 L Monocytes % 7.6 Eosinophils % 4.5 Basophils % 0.4 Absolute Granulocytes 7.59 H Basophils # 0.04 Sodium 137 Potassium 4.1 Chloride 103 Carbon Dioxide 27 Anion Gap 11.0 BUN 15 Creatinine 0.98 Estimated GFR > 60.0 Glucose 134 H POC Glucometer Hemoglobin A1c Calcium 9.0 Total Bilirubin 1.50 H AST 49 ALT 57 H Alkaline Phosphatase 74 Troponin I < 0.012 Serum Total Protein 7.4 Albumin 4.0 03/09/20 03/09/20 03/09/20 17:00 16:28 16:15 WBC RBC Hgb Hct MCV MCH MCHC RDW Plt Count MPV Gran % Eos # (Auto) Absolute Lymphs (auto) Absolute Monos (auto) Lymphocytes % Monocytes % Eosinophils % Basophils % Absolute Granulocytes Basophils # Sodium Potassium Chloride Carbon Dioxide Anion Gap BUN Creatinine Estimated GFR Glucose POC Glucometer 116 H Hemoglobin A1c 6.65 H Calcium Total Bilirubin AST ALT Alkaline Phosphatase Troponin I < 0.012 Serum Total Protein Albumin 03/09/20 03/09/20 14:42 11:10 WBC RBC Hgb Hct MCV MCH MCHC RDW Plt Count MPV Gran % Eos # (Auto) Absolute Lymphs (auto) Absolute Monos (auto) Lymphocytes % Monocytes % Eosinophils % Basophils % Absolute Granulocytes Basophils # Sodium Potassium Chloride Carbon Dioxide Anion Gap BUN Creatinine Estimated GFR Glucose POC Glucometer Hemoglobin A1c Calcium Total Bilirubin AST ALT Alkaline Phosphatase Troponin I < 0.012 < 0.012 Serum Total Protein Albumin Orders (Last 24 hours) Category Date Time Status Bedrest with BRP/BSC ROUTINE Activity 03/09/20 14:49 Active Up With Assistance ROUTINE Activity 03/09/20 14:49 Active Code Status Order ROUTINE Care 03/09/20 14:49 Active Fall Protocol Q1H Care 03/09/20 14:49 Active IV Care Q6H Care 03/09/20 14:[address] in Observation ROUTINE Care 03/09/20 14:49 Active Ezio Amanda, Apply ROUTINE Care 03/09/20 14:49 Active Weight,Daily 0600 Care 03/09/20 14:49 Active Heart-Healthy Diet Diet 03/09/20 Lunch Active Discharge Routine Discharge 03/10/20 Ordered Discharge/Telephone Order Routine Discharge 03/10/20 Active CBC W DIFF AM.LAB Lab 03/10/20 04:55 Completed CMP AM.LAB Lab 03/10/20 04:00 Completed HEMOGLOBIN A1C Urgent Lab 03/09/20 16:15 Completed POCT GLUCOSE Stat Lab 03/09/20 16:28 Completed SARS-CoV-2, BONNIE Routine Lab 03/09/20 20:30 Received TROPONIN Q3H Lab 03/09/20 11:10 Completed TROPONIN Q3H Lab 03/09/20 14:42 Completed TROPONIN Q3H Lab 03/09/20 17:00 Completed TROPONIN Q3H Lab 03/09/20 20:30 Completed Acetaminophen 325 mg [Tylenol 325 mg] Med 03/09/20 14:49 Active 650 mg PO Q4H PRN PRN Albuterol/Ipratropium 3ml Neb* [DUONEB 0.5-3 MG/3 ml Med 03/09/20 14:49 Discontinued Neb] 3 ml IH Q4HPRN PRN Alprazolam 0.5 mg [xanAX 0.5 MG] Med 03/10/20 10:00 Active 0.5 mg PO DAILY Aspirin EC 81 mg [Ecotrin 81 mg] Med 03/10/20 10:00 Active 81 mg PO DAILY Carvedilol 6.25 mg [Coreg 6.25 MG] Med 03/09/20 22:00 Active 6.25 mg PO BID Clopidogrel Bisulfate 75 mg [PLAVIX 75 MG Tablet] Med 03/10/20 10:00 Active 75 mg PO DAILY Ezetimibe 10 mg [Zetia 10 MG] Med 03/10/20 10:00 Active 10 mg PO DAILY Folic Acid/Vitamin B Comp W-C* [Foltx (Folbic)] Med 03/10/20 10:00 Active 1 tab PO DAILY Morphine Sulfate 2 mg Inj Med 03/09/20 14:49 Active 2 mg IV Q4H PRN PRN Ondansetron HCl 4 mg/2 ml [Zofran 4 MG/2 ML VIAL] Med 03/09/20 14:49 Active 4 mg IV Q6H PRN PRN PANTOPRAZOLE 40 mg Tablet [Protonix 40MG Tablet] Med 03/10/20 10:00 Active 40 mg PO DAILY Pantoprazole 40 mg [Protonix 40 mg IV] Med 03/09/20 14:49 Active 40 mg IV Q24H10 Ranolazine 500 MG [Ranexa 500 MG] Med 03/09/20 22:00 Active 500 mg PO BID Simvastatin 20Mg [Zocor 20Mg] Med 03/10/20 10:00 Active 40 mg PO DAILY Pulse Oximetry ROUTINE RT 03/09/20 15:47 Active Respiratory Therapy Assessment DAILY RT 03/09/20 15:13 Active Patient Care Notes (Last 24 hours) 03/10/20 10:28 Nursing Note by Ursula Munoz pt offered am meds states he is going home he will just take them when he gets there. pt is waiting on ride at this time Initialized on 03/10/20 10:28 - END OF NOTE 03/10/20 00:56 Respiratory Note by Janice Pedroza THE PT DOES NOT HAVE ANY RESPIRATORY HX AND DOES NOT TAKE RESP MEDICATIONS AT HOME. THE NEBULIZER TXS ORDERED BY THE E.R. PHYSICIAN WERE DISCONTINUED AT THIS TIME PER R.T. PROTOCOL. THE PT VERBALIZED UNDERSTANDING OF THIS. Initialized on 03/10/20 00:56 - END OF NOTE 03/09/20 16:46 Nursing Note by Dodie Auguste while calling dr. garcia to get home meds reordered dr garcia ordered a rapid covid test. neo contreras notified Initialized on 03/09/20 16:46 - END OF NOTE - Vitals & Intake/Output Vital Signs: Vital Signs Temperature 98.7 F 03/10/20 08:06 Pulse Rate 63 03/10/20 08:06 Respiratory Rate 16 03/10/20 08:06 Blood Pressure 126/73 03/10/20 08:06 O2 Sat by Pulse Oximetry 96 03/10/20 08:06 Intake & Output: Intake & Output 03/07/20 03/08/20 03/09/20 03/10/20 11:59 11:59 11:59 11:59 Intake Total 580 Balance 580 Weight 86.183 kg 86.5 kg - Lab Result Diagrams: 03/10/20 04:55 03/10/20 04:00 Lab Results-Last 24 Hrs: Lab Results-Last 24 Hours 03/09/20 03/09/20 03/09/20 Range/Units 11:10 14:42 16:15 WBC (4.0-10.5) K/mm3 RBC (4.1-5.6) M/mm3 Hgb (12.5-18.0) gm/dl Hct (42-50) % MCV (78-100) fl MCH (26-32) pg MCHC (32-36) g/dl RDW (11.5-14.0) % Plt Count (150-450) K/mm3 MPV (7.5-11.0) fl Gran % (36.0-66.0) % Eos # (Auto) (0-0.5) Absolute Lymphs (auto) (1.0-4.6) Absolute Monos (auto) (0.0-1.3) Lymphocytes % (24.0-44.0) % Monocytes % (0.0-12.0) % Eosinophils % (0.00-5.0) % Basophils % (0.0-0.4) % Absolute Granulocytes (1.4-6.9) Basophils # (0-0.4) Sodium (137-145) mmol/L Potassium (3.5-5.1) mmol/L Chloride (98-107) mmol/L Carbon Dioxide (22-30) mmol/L Anion Gap (5-15) MEQ/L BUN (9-20) mg/dL Creatinine (0.66-1.25) mg/dL Estimated GFR ML/MIN Glucose (74-106) mg/dL POC Glucometer (74 to 106) mg/dL Hemoglobin A1c 6.65 H (4.5-6.0) % Calcium (8.4-10.2) mg/dL Total Bilirubin (0.2-1.3) mg/dL AST (17-59) U/L ALT (0-50) U/L Alkaline Phosphatase (38-126) U/L Troponin I < 0.012 < 0.012 (0.000-0.034) ng/mL Serum Total Protein (6.3-8.2) g/dL Albumin (3.5-5.0) g/dL 03/09/20 03/09/20 03/09/20 Range/Units 16:28 17:00 20:30 WBC (4.0-10.5) K/mm3 RBC (4.1-5.6) M/mm3 Hgb (12.5-18.0) gm/dl Hct (42-50) % MCV (78-100) fl MCH (26-32) pg MCHC (32-36) g/dl RDW (11.5-14.0) % Plt Count (150-450) K/mm3 MPV (7.5-11.0) fl Gran % (36.0-66.0) % Eos # (Auto) (0-0.5) Absolute Lymphs (auto) (1.0-4.6) Absolute Monos (auto) (0.0-1.3) Lymphocytes % (24.0-44.0) % Monocytes % (0.0-12.0) % Eosinophils % (0.00-5.0) % Basophils % (0.0-0.4) % Absolute Granulocytes (1.4-6.9) Basophils # (0-0.4) Sodium (137-145) mmol/L Potassium (3.5-5.1) mmol/L Chloride (98-107) mmol/L Carbon Dioxide (22-30) mmol/L Anion Gap (5-15) MEQ/L BUN (9-20) mg/dL Creatinine (0.66-1.25) mg/dL Estimated GFR ML/MIN Glucose (74-106) mg/dL POC Glucometer 116 H (74 to 106) mg/dL Hemoglobin A1c (4.5-6.0) % Calcium (8.4-10.2) mg/dL Total Bilirubin (0.2-1.3) mg/dL AST (17-59) U/L ALT (0-50) U/L Alkaline Phosphatase (38-126) U/L Troponin I < 0.012 < 0.012 (0.000-0.034) ng/mL Serum Total Protein (6.3-8.2) g/dL Albumin (3.5-5.0) g/dL 03/10/20 03/10/20 Range/Units 04:00 04:55 WBC 11.1 H (4.0-10.5) K/mm3 RBC 3.93 L (4.1-5.6) M/mm3 Hgb 12.4 L (12.5-18.0) gm/dl Hct 37.9 L (42-50) % MCV 96.4 (78-100) fl MCH 31.6 (26-32) pg MCHC 32.7 (32-36) g/dl RDW 15.0 H (11.5-14.0) % Plt Count 204 (150-450) K/mm3 MPV 10.2 (7.5-11.0) fl Gran % 68.3 H (36.0-66.0) % Eos # (Auto) 0.50 (0-0.5) Absolute Lymphs (auto) 2.14 (1.0-4.6) Absolute Monos (auto) 0.85 (0.0-1.3) Lymphocytes % 19.2 L (24.0-44.0) % Monocytes % 7.6 (0.0-12.0) % Eosinophils % 4.5 (0.00-5.0) % Basophils % 0.4 (0.0-0.4) % Absolute Granulocytes 7.59 H (1.4-6.9) Basophils # 0.04 (0-0.4) Sodium 137 (137-145) mmol/L Potassium 4.1 (3.5-5.1) mmol/L Chloride 103 (98-107) mmol/L Carbon Dioxide 27 (22-30) mmol/L Anion Gap 11.0 (5-15) MEQ/L BUN 15 (9-20) mg/dL Creatinine 0.98 (0.66-1.25) mg/dL Estimated GFR > 60.0 ML/MIN Glucose 134 H (74-106) mg/dL POC Glucometer (74 to 106) mg/dL Hemoglobin A1c (4.5-6.0) % Calcium 9.0 (8.4-10.2) mg/dL Total Bilirubin 1.50 H (0.2-1.3) mg/dL AST 49 (17-59) U/L ALT 57 H (0-50) U/L Alkaline Phosphatase 74 (38-126) U/L Troponin I (0.000-0.034) ng/mL Serum Total Protein 7.4 (6.3-8.2) g/dL Albumin 4.0 (3.5-5.0) g/dL - Radiology Exams Ordered Rad Exams-Entire Visit: Radiology Procedures Category Date Time Status CHEST 1 VIEW (PORTABLE) Stat Exams 03/09/20 07:56 Completed CHEST WITH CONTRAST [CT] Stat Exams 03/09/20 09:11 Completed - Procedures and Test Procedures and Tests throughout Hospitalization: Therapy Orders & Screens 03/09/20 15:13 Respiratory Therapy Assessment DAILY Comment: Diagnosis: CHEST PAIN RULE OUT [place] - Discharge Discharge Date: 03/10/20 Disposition: Home, Self-Care Condition: Stable Prescriptions: Continue Carvedilol 6.25 mg [Coreg 6.25 MG] 6.25 mg PO BID Ranolazine 500 MG [Ranexa 500 MG] 500 mg PO BID Pantoprazole Sodium 40 mg PO DAILY Clopidogrel Bisulfate 75 mg [PLAVIX 75 MG Tablet] 75 mg PO DAILY Folic Acid/Vit B Complex and C [Folbee Plus Tablet] 5 mg PO DAILY Ezetimibe 10 mg [Zetia 10 MG] 10 mg PO DAILY Aspirin EC 81 mg [Ecotrin 81 mg] 81 mg PO DAILY ALPRAZolam [Alprazolam] 0.5 mg PO DAILY Atorvastatin Calcium [Lipitor] 80 mg PO DAILY Instructions: Chest Pain That Is Not Caused by the Heart (DC) Follow up with: CASSI GARCIA MD [NON-STAFF PHY W/O PRIVILEGES] - 03/19/20 10:45 am (alex )
== END 2020-03-10 10:40 | disposition home or self-care (01) ==
LOC: ED 07:52 → MED SURG 14:40
PROVIDERS: ADMIT General Practice; ATTEND General Practice
DX: R07.9 Chest pain, unspecified (principal); Z85.09 Personal history of malignant neoplasm of other digestive organs; Z79.899 Other long term (current) drug therapy; Z79.01 Long term (current) use of anticoagulants; E78.00 Pure hypercholesterolemia, unspecified; I25.10 Atherosclerotic heart disease of native coronary artery without angina pectoris
CPT/HCPCS: 36000; 36415; 71045; 71260; 80053; 82947; 83036; 83880; 84484; 85025; 85379; 93005; 93041; 94760; 99285; U0003; 93268; A9270-GY; G0378

== ENCOUNTER 2022-01-30 19:03 | Observation (INO) | payer MEDICARE, OTHER ==
[2022-01-30 19:24] LABS: Absolute Neutrophil Ct (ANC) 3.07 x10^3/uL (1.4-6.9); Basophil (Absolute #) 0.02 x10^3/uL (0-0.4); Eosinophil % 3.4 % (0.00-5.0); Hematocrit 34.2 % (42-50); Hemoglobin 10.8 g/dL (12.5-18.0); Lymphocytes % 35.4 % (24.0-44.0); Mean Cell Volume 90.2 fL (78-100); Mean Corpuscular Hemoglobin 28.5 pg (26-32); Mean Corpuscular Hgb Concent. 31.6 g/dL (32-36); Mean Platelet Volume 9.1 fL (7.5-11.0); Monocyte (Absolute #) 0.53 x10^3/uL (0.0-1.3); Monocytes % 8.9 % (0.0-12.0); Neutrophil % 51.8 % (36.0-66.0); Platelet Count 288 x10^3/uL (150-450); Red Blood Count 3.79 x10^6/uL (4.1-5.6); Red Cell Distribution Width 15.1 % (11.5-14.0); White Blood Count 5.9 x10^3/uL (4.0-10.5)
[2022-01-30 19:42] LABS: INR 1.08 (0.8-3.0); PROTIME 11.4 SECONDS (9.4-12.5); PTT 27.5 SECONDS (25.1-36.5)
--- NOTE | 2022-01-30 19:46 | ERPHSYRPT ---
- History of Present Illness Historian: patient Exam Limitations: no limitations Patient Subjective Stated Complaint: pt co chest pain that started this morning, getting worse. no fever,no cough, pt a a recent wipple procedure and states he still has a open wound. Triage Nursing Assessment: pt alert, walked in , resp easy, skin w/d/p, dressing to abd, face mask in place, no edema noted.has port a cath to right side of chest Physician History: 71 yo wm w h/o [place]/stents x4/DM/HTN/Hyperlipidemia presents w intermittant sharp chest pain since 11:00AM today. Pain is 0 at present but has been up to an 8. It does not radiate, but he has had some L arm numbness associated w the pain. Dyspnea was associated w the pain but denies N/V/diaphoresis. Cough/fever/trauma are denied. Timing/Duration: today (Started 11:00AM) Activities at Onset: rest Quality: sharpness Location: other (L lateral thorax) Chest Pain Radiation: no radiation Severity of Pain-Max: severe Severity of Pain-Current: mild Modifying Factors: Improves With: nothing Associated Symptoms: denies symptoms, shortness of breath Prior Chest Pain/Cardiac Workup: cardiac cath Nitro Today/Relief: no nitro taken today Aspirin Treatment Today: 81 mg x 1 Allergies/Adverse Reactions: Sulfa (Sulfonamide Antibiotics) Allergy (Mild, Verified 01/30/22 19:19) unsure has been told for years he has allergy Home Medications: Ranolazine 500 MG [Ranexa 500 MG] 500 mg PO BID 01/17/13 [History] ALPRAZolam [Alprazolam] 0.5 mg PO DAILY 03/09/20 [History] Aspirin EC 81 mg [Ecotrin 81 mg] 81 mg PO DAILY 03/09/20 [History] Atorvastatin Calcium [Lipitor] 80 mg PO DAILY 03/09/20 [History] Folic Acid/Vit B Complex and C [Folbee Plus Tablet] 5 mg PO DAILY 03/09/20 [History] Pantoprazole Sodium 40 mg PO DAILY 03/09/20 [History] Duloxetine HCl [Cymbalta] 30 mg PO DAILY 01/30/22 [History] Insulin Degludec [Tresiba Flextouch U-100] 10 units DAILY 01/30/22 [History] Oxycodone HCl 5 mg Ir [Oxy-IR 5 MG] 5 mg PO QID 01/30/22 [History] Ticagrelor [Brilinta] 1 ea DAILY 01/30/22 [History] Hx Tetanus, Diphtheria Vaccination/Date Given: Yes (UNKNOWN) Hx Influenza Vaccination/Date Given: Yes Hx Pneumococcal Vaccination/Date Given: Yes Immunizations Up to Date: Yes Travel Risk - International Travel Have you traveled outside of the country in past 3 weeks: No - Coronavirus Screening Are you exhibiting any of the following symptoms?: No Close contact with a COVID-19 positive Pt in past 14-21 Days: No - Vaccine Status Have you recieved a Covid-19 vaccination: Yes Heel Shaper: Unknown - Vaccination Dates Date of 2cond Vaccination (if applicable): 2020 Dates if Unknown: ? - Review of Systems Constitutional: No Symptoms Eyes: No Symptoms Ears, Nose, & Throat: No Symptoms Respiratory: No Symptoms Cardiac: No Symptoms, Chest Pain Abdominal/Gastrointestinal: No Symptoms Genitourinary Symptoms: No Symptoms Musculoskeletal: No Symptoms Skin: No Symptoms Neurological: No Symptoms Psychological: No Symptoms Endocrine: No Symptoms Hematologic/Lymphatic: No Symptoms Immunological/Allergic: No Symptoms - Past Medical History Pertinent Past Medical History: Yes Neurological History: No Pertinent History ENT History: No Pertinent History Cardiac History: Coronary Artery Disease, High Cholesterol, Myocardial Infarction ([place]) Respiratory History: No Pertinent History Endocrine Medical History: No Pertinent History Musculoskeletal History: No Pertinent History GI Medical History: Hepatitis History: No Pertinent History, Other Psycho-Social History: No Pertinent History Male Reproductive Disorders: No Pertinent History Other Medical History: ampullary cancer - Past Surgical History Past Surgical History: Yes Neuro Surgical History: No Pertinent History Cardiac: Cardiac Stent Respiratory: No Pertinent History Gastrointestinal: Appendectomy, Cholecystectomy Genitourinary: No Pertinent History Musculoskeletal: No Pertinent History Male Surgical History: No Pertinent History Other Surgical History: 4 stents, 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 - Social History Smoking Status: Former smoker Exposure to second hand smoke: Yes Drug Use: none Patient Lives Alone: No - Nursing Vital Signs Nursing Vital Signs: Initial Vital Signs Temperature 97.7 F 01/30/22 19:10 Pulse Rate 79 01/30/22 19:10 Respiratory Rate 18 01/30/22 19:10 Blood Pressure 135/75 01/30/22 19:10 O2 Sat by Pulse Oximetry 100 01/30/22 19:10 Pain Scale Pain Intensity 4 WNL - Physical Exam General Appearance: no apparent distress Eye Exam: PERRL/EOMI, eyes nml inspection Ears, Nose, Throat Exam: normal ENT inspection, TMs normal, pharynx normal, moist mucous membranes Neck Exam: normal inspection, non-tender, supple, full range of motion, No meningismus, No mass, No Brudzinski, No Kernig's, No carotid bruit Respiratory Exam: normal breath sounds, lungs clear, airway intact Cardiovascular Exam: regular rate/rhythm, normal heart sounds, normal peripheral pulses, capillary refill <2 sec, No murmur Gastrointestinal/Abdomen Exam: soft, normal bowel sounds, No tenderness Back Exam: normal inspection, normal range of motion, No CVA tenderness, No vertebral tenderness Extremity Exam: normal inspection, normal range of motion Neurologic Exam: alert, oriented x 3, cooperative, copy cutter II-XII nml as tested, normal mood/affect, nml cerebellar function, nml station & gait, sensation nml Skin Exam: normal color, warm, dry Lymphatic Exam: No adenopathy SpO2 Interpretation: normal SpO2: 100 O2 Delivery: Room Air - Course Nursing assessment & vital signs reviewed: Yes EKG Interpreted by Me: RATE (NSR/Rate82/Normal QT-QTc/Poor R wave progression/2mm depression V4-V6) - Radiology Exams Chest X-ray Interpretation: Interpreted by me (CXR NAD per ER read) Ordered Tests: Active Orders 24 hr Category Date Time Status Bedrest ROUTINE Activity 01/30/22 20:29 Active Code Status Order ROUTINE Care 01/30/22 20:29 Active IV Care Q6H Care 01/30/22 20:29 Active Implement Chest Pain Pathway ROUTINE Care 01/30/22 20:[address] in Observation ROUTINE Care 01/30/22 20:30 Active Ezio Amanda, Apply ROUTINE Care 01/30/22 20:29 Active Vital Signs Q4H Care 01/30/22 20:29 Active Weight,Daily 0600 Care 01/30/22 20:29 Active Heart-Healthy Diet Diet 01/31/22 Breakfast Active CHEST 1 VIEW (PORTABLE) Stat Exams 01/30/22 19:19 Taken CBC W DIFF Stat Lab 01/30/22 19:20 Completed CMP Stat Lab 01/30/22 19:20 Completed LIPID PROFILE AM.LAB Lab 01/31/22 04:00 Ordered MAGNESIUM Stat Lab 01/30/22 19:20 Completed NT PRO BNP Stat Lab 01/30/22 19:20 Completed PROTIME WITH INR Stat Lab 01/30/22 19:20 Completed PTT Stat Lab 01/30/22 19:20 Completed TROPONIN Q4H Lab 01/30/22 19:20 Completed TROPONIN Q4H Lab 01/30/22 23:30 Ordered TROPONIN Q4H Lab 01/31/22 00:30 Ordered TROPONIN Q4H Lab 01/31/22 03:30 Ordered TROPONIN Q4H Lab 01/31/22 04:30 Ordered EKG Q8HX2,QAMX3,PRN RT 01/30/22 20:29 Active Pulse Oximetry Q4H RT 01/30/22 20:29 Active Transfer Order Routine Transfer 01/30/22 Ordered Medication Summary Generic Name Dose Route Start Last Admin Trade Name Freq PRN Reason Stop Dose Admin Acetaminophen 650 mg 01/30/22 20:29 Acetaminophen 325 Mg Tablet PO 03/01/22 20:28 Q4H PRN PRN PAIN AND/OR FEVER Al Hydrox/Mg Hydrox/Simethicone 30 ml 01/30/22 20:29 Mag Hydrox/Al Hydrox/Simeth 30 Ml Udcup PO 03/01/22 20:28 Q4H PRN PRN INDIGESTION Aspirin 325 mg 01/31/22 10:00 Aspirin 325 Mg Tablet.Ec PO 03/02/22 09:59 DAILY [facility] Enoxaparin Sodium 40 mg 01/31/22 10:00 Enoxaparin Sodium 40 Mg/0.4 Ml Syringe SQ 03/02/22 09:59 DAILY [facility] Magnesium Hydroxide 30 - 60 ml 01/30/22 20:29 Magnesium Hydroxide 30 Ml Udcup PO 03/01/22 20:28 QDP PRN CONSTIPATION Nitroglycerin 1 gm 01/30/22 22:00 Nitroglycerin 1 Gm Packet TOP 03/01/22 21:59 Q8HT [facility] Ondansetron HCl 4 mg 01/30/22 20:29 Ondansetron Hcl 4 Mg/2 Ml Vial IV 03/01/22 20:28 Q4H PRN PRN NAUSEA/VOMITING Senna/Docusate Sodium 2 udtab 01/30/22 20:29 Senna/Docusate Sodium 1 Udtab Tablet PO 03/01/22 20:28 BID PRN PRN CONSTIPATION Discontinued Medications Generic Name Dose Route Start Last Admin Trade Name Winsome PRN Reason Stop Dose Admin Aspirin 324 mg 01/30/22 20:21 01/30/22 20:25 Aspirin 81 Mg Tab.Chew PO 01/30/22 20:22 324 mg STAT ONE Administration Nitroglycerin 1 gm 01/30/22 20:33 01/30/22 20:35 Nitroglycerin 1 Gm Packet TOP 01/30/22 20:34 1 gm STAT ONE Administration Lab/Rad Data: Laboratory Result Diagrams 01/30/22 19:20 01/30/22 19:20 Laboratory Results 01/30/22 01/30/22 01/30/22 Range/Units 20:40 19:20 19:20 WBC (4.0-10.5) x10^3/uL RBC (4.1-5.6) x10^6/uL Hgb (12.5-18.0) g/dL Hct (42-50) % MCV (78-100) fL MCH (26-32) pg MCHC (32-36) g/dL RDW (11.5-14.0) % Plt Count (150-450) x10^3/uL MPV (7.5-11.0) fL Gran % (36.0-66.0) % Immature Gran % (Auto) (0.00-0.4) % Nucleat RBC Rel Count (0.00-0.1) % Eos # (Auto) (0-0.5) x10^3/uL Immature Gran # (Auto) (0.00-0.03) x10^3u/L Absolute Lymphs (auto) (1.0-4.6) x10^3/uL Absolute Monos (auto) (0.0-1.3) x10^3/uL Absolute Nucleated RBC (0.00-0.01) x10^3u/L Lymphocytes % (24.0-44.0) % Monocytes % (0.0-12.0) % Eosinophils % (0.00-5.0) % Basophils % (0.0-0.4) % Absolute Granulocytes (1.4-6.9) x10^3/uL Basophils # (0-0.4) x10^3/uL PT 11.4 (9.4-12.5) SECONDS INR 1.08 (0.8-3.0) APTT 27.5 (25.1-36.5) SECONDS Sodium (137-145) mmol/L Potassium (3.5-5.1) mmol/L Chloride (98-107) mmol/L Carbon Dioxide (22-30) mmol/L Anion Gap (5-15) MEQ/L BUN (9-20) mg/dL Creatinine (0.66-1.25) mg/dL Estimated GFR ML/MIN Glucose (74-106) mg/dL Calcium (8.4-10.2) mg/dL Magnesium (1.6-2.3) mg/dL Total Bilirubin (0.2-1.3) mg/dL AST (17-59) U/L ALT (0-50) U/L Alkaline Phosphatase (38-126) U/L Troponin I < 0.012 (0.000-0.034) ng/mL NT-Pro-B Natriuret Pep (0-900) pg/mL Serum Total Protein (6.3-8.2) g/dL Albumin (3.5-5.0) g/dL Influenza Type A Ag NEGATIVE (NEGATIVE) Influenza Type B Ag NEGATIVE (NEGATIVE) RSV (PCR) NEGATIVE (Negative) SARS-CoV-2 (PCR) NEGATIVE (NEGATIVE) 01/30/22 01/30/22 Range/Units 19:20 19:20 WBC 5.9 (4.0-10.5) x10^3/uL RBC 3.79 L (4.1-5.6) x10^6/uL Hgb 10.8 L (12.5-18.0) g/dL Hct 34.2 L (42-50) % MCV 90.2 (78-100) fL MCH 28.5 (26-32) pg MCHC 31.6 L (32-36) g/dL RDW 15.1 H (11.5-14.0) % Plt Count 288 (150-450) x10^3/uL MPV 9.1 (7.5-11.0) fL Gran % 51.8 (36.0-66.0) % Immature Gran % (Auto) 0.2 (0.00-0.4) % Nucleat RBC Rel Count 0.0 (0.00-0.1) % Eos # (Auto) 0.20 (0-0.5) x10^3/uL Immature Gran # (Auto) 0.01 (0.00-0.03) x10^3u/L Absolute Lymphs (auto) 2.10 (1.0-4.6) x10^3/uL Absolute Monos (auto) 0.53 (0.0-1.3) x10^3/uL Absolute Nucleated RBC 0.00 (0.00-0.01) x10^3u/L Lymphocytes % 35.4 (24.0-44.0) % Monocytes % 8.9 (0.0-12.0) % Eosinophils % 3.4 (0.00-5.0) % Basophils % 0.3 (0.0-0.4) % Absolute Granulocytes 3.07 (1.4-6.9) x10^3/uL Basophils # 0.02 (0-0.4) x10^3/uL PT (9.4-12.5) SECONDS INR (0.8-3.0) APTT (25.1-36.5) SECONDS Sodium 136 L (137-145) mmol/L Potassium 4.4 (3.5-5.1) mmol/L Chloride 101 (98-107) mmol/L Carbon Dioxide 29 (22-30) mmol/L Anion Gap 10.0 (5-15) MEQ/L BUN 12 (9-20) mg/dL Creatinine 0.69 (0.66-1.25) mg/dL Estimated GFR > 60.0 ML/MIN Glucose 186 H (74-106) mg/dL Calcium 8.9 (8.4-10.2) mg/dL Magnesium 1.8 (1.6-2.3) mg/dL Total Bilirubin 0.90 (0.2-1.3) mg/dL AST 69 H (17-59) U/L ALT 72 H (0-50) U/L Alkaline Phosphatase 139 H (38-126) U/L Troponin I (0.000-0.034) ng/mL NT-Pro-B Natriuret Pep 88.7 (0-900) pg/mL Serum Total Protein 7.6 (6.3-8.2) g/dL Albumin 3.9 (3.5-5.0) g/dL Influenza Type A Ag (NEGATIVE) Influenza Type B Ag (NEGATIVE) RSV (PCR) (Negative) SARS-CoV-2 (PCR) (NEGATIVE) - Progress Progress Note: 01/30/22 20:32 ASA 324mg po x1 01/30/22 22:21 NTG paste placed Discussed with .: Gareth Will see patient in: hospital (observation) Counseled pt/family regarding: lab results, diagnosis, need for follow-up, marie oliver - Departure Departure Disposition: Observation Clinical Impression: Unstable angina Condition: Stable Critical Care Time: No Referrals: ALISIA FLETCHER MD [Primary Care Provider] - Follow up/PCP as directed Instructions: Angina (DC), Chest Pain (DC)
[2022-01-30 19:51] LABS: ALBUMIN 3.9 g/dL (3.5-5.0); ALKALINE PHOSPHATASE 139 U/L (38-126); BLOOD UREA NITROGEN 12 mg/dL (9-20); CHLORIDE 101 mmol/L (98-107); Calcium 8.9 mg/dL (8.4-10.2); Carbon Dioxide 29 mmol/L (22-30); Creatinine 1 0.69 mg/dL (0.66-1.25); EST GLOMERULAR FILTRATION RATE > 60.0 ML/MIN; Glucose 186 mg/dL (74-106); MAGNESIUM 1.8 mg/dL (1.6-2.3); NT PRO BNP 88.7 pg/mL (0-900); Potassium 4.4 mmol/L (3.5-5.1); SGOT/AST 69 U/L (17-59); SGPT/ALT 72 U/L (0-50); SODIUM 136 mmol/L (137-145); Total Protein 7.6 g/dL (6.3-8.2)
[2022-01-30] MEDS ORDERED: BABY ASPIRIN 81 MG CHEW PO ONE (20:21)
[2022-01-30] MEDS ORDERED: MAALOX ES 30 ML UNIT DOSE PO PRN (20:29)
[2022-01-30] MEDS ORDERED: TYLENOL 325 MG PO PRN (20:29)
[2022-01-30] MEDS ORDERED: Zofran 4 MG/2 ML VIAL IV PRN (20:29)
[2022-01-30] MEDS ORDERED: Senokot-S Tablet PO PRN (20:29)
[2022-01-30] MEDS ORDERED: MILK OF MAGNESIA 30 ML PO PRN (20:29)
[2022-01-30] MEDS ORDERED: NITRO-BID 2% UD PACKETS TOP ONE (20:33)
[2022-01-30 21:18] LABS: INFLUENZA A NEGATIVE (NEGATIVE); INFLUENZA B NEGATIVE (NEGATIVE); RESPIRATORY SYNCTIAL VIRUS NEGATIVE (Negative); SARS-CoV-2 Xpert Express NEGATIVE (NEGATIVE)
[2022-01-30] MEDS ORDERED: Lantus Insulin SQ ONE (23:47)
[2022-01-30] MEDS ORDERED: Oxy-IR 5 MG PO PRN (23:48)
[2022-01-31] MEDS: NITRO-BID 2% UD PACKETS TOP SCH ×2 (01:16→05:27)
[2022-01-31 04:24] LABS: Cholesterol 66 mg/dL (50-200); HDL CHOLESTEROL 24 mg/dL (40-60); LDL, DIRECT < 36 mg/dL (30-100); Risk Ratio 2.7; TRIGLYCERIDE 74 mg/dL (30-150)
[2022-01-31] MEDS ORDERED: Oxy-IR 5 MG PO PRN (07:00)
--- NOTE | 2022-01-31 08:49 | XRAY ---
Indication: Chest pain. Comparison: March 09, 2020 Portable apical lordotic chest remains clear again with incidental tiny calcified granulomas. Heart not enlarged again with right Port-A-Cath and coronary stent. Bony thorax intact again with osteopenia and degenerative changes. Impression: Continued nonacute chest with chronic features.
[2022-01-31] MEDS ORDERED: ENOXAPARIN SODIUM SQ SCH (10:00)
[2022-01-31] MEDS ORDERED: Ecotrin 325 MG PO SCH (10:00)
[2022-01-31 11:50] VITALS: BP 103/56; PULSE 63; O2SAT 93
--- NOTE | 2022-01-31 12:31 | PCM.SSS ---
History of Present Illness - Chief Complaint Chief Complaint: Unstable Angina History of Present Illness: is a 71 year old male h/o AL/stents x4/DM/HTN/Hyperlipidemia presents w intermittant sharp chest pain since 11:00AM today. Pain is 0 at present but has been up to an 8. It does not radiate, but he has had some L arm numbness associated w the pain. Dyspnea was associated w the pain but denies N/V/diaphoresis. Cough/fever/trauma are denied. Timing/Duration: today (Started 11:00AM) Activities at Onset: rest Quality: sharpness Location: other (L lateral thorax) Chest Pain Radiation: no radiation Severity of Pain-Max: severe Severity of Pain-Current: mild Modifying Factors: Improves With: nothing Associated Symptoms: denies symptoms, shortness of breath Prior Chest Pain/Cardiac Workup: cardiac cath - Review of Systems Constitutional: No Fever, No Chills Eyes: No Symptoms Ears, Nose, & Throat: No Symptoms Respiratory: Short Of Breath, No Cough Cardiac: Chest Pain, No Edema, No Palpitations, No Syncope Abdominal/Gastrointestinal: No Abdominal Pain, No Nausea, No Vomiting, No Diarrhea Genitourinary Symptoms: No Dysuria Musculoskeletal: No Back Pain, No Neck Pain Skin: No Rash Neurological: No Dizziness, No Focal Weakness, No Sensory Changes Psychological: No Symptoms Endocrine: No Symptoms Hematologic/Lymphatic: No Symptoms Immunological/Allergic: No Symptoms Medications & Allergies Home Medications: Home Medication List Ranolazine 500 MG [Ranexa 500 MG] 500 mg PO BID 01/17/13 [History Confirmed 01/30/22] ALPRAZolam [Alprazolam] 0.5 mg PO HS 03/09/20 [History Confirmed 01/30/22] Aspirin EC 81 mg [Ecotrin 81 mg] 81 mg PO DAILY 03/09/20 [History Confirmed 01/30/22] Atorvastatin Calcium [Lipitor] 80 mg PO DAILY 03/09/20 [History Confirmed 01/30/22] Folic Acid/Vit B Complex and C [Folbee Plus Tablet] 5 mg PO DAILY 03/09/20 [History Confirmed 01/30/22] Pantoprazole Sodium 40 mg PO DAILY 03/09/20 [History Confirmed 01/30/22] Duloxetine HCl [Cymbalta] 30 mg PO BID 01/30/22 [History Confirmed 01/30/22] Famotidine 20 mg [Pepcid 20 MG] 20 mg PO BID 01/30/22 [History Confirmed 01/30/22] Insulin Degludec [Tresiba Flextouch U-100] 10 units SQ HS 01/30/22 [History Confirmed 01/30/22] Oxycodone HCl 5 mg Ir [Oxy-IR 5 MG] 5 mg PO QID 01/30/22 [History Con firmed 01/30/22] Psyllium Husk (with Sugar) [Fiber Powder] 2 tsp PO BID 01/30/22 [History Confirmed 01/30/22] Ticagrelor [Brilinta] 1 ea PO DAILY 01/30/22 [History Confirmed 01/30/22] polyethylene glycoL 3350 [Miralax Powder] 17 g PO BID 01/30/22 [History Confirmed 01/30/22] Allergies/Adverse Reactions: Allergies Allergy/AdvReac Type Severity Reaction Status Date / Time Sulfa (Sulfonamide Allergy Mild Verified 01/30/22 19:19 Antibiotics) - Past Medical History Past Medical History: Yes Neurological History: No Pertinent History ENT History: No Pertinent History Cardiac History: Coronary Artery Disease, High Cholesterol, Myocardial Inf arction (AL) Respiratory History: No Pertinent History Endocrine Medical History: No Pertinent History Musculoskelatal History: No Pertinent History GI Medical History: No Pertinent History, Other History: No Pertinent History, Other Pyscho-Social History: No Pertinent History 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 stent in liver - Social History Smoking Status: Former smoker Exposure to second hand smoke: No Alcohol: None Drug Use: none - Physical Exam Vital Signs: Vital Signs - 24 hr Temp Pulse Resp BP Pulse Ox 01/31/22 11:49 97.7 F 63 12 103/56 93 L 01/31/22 07:10 98.0 F 71 16 101/59 95 11/22/22 04:00 97 01/31/22 03:57 98.2 F 63 16 105/62 97 01/30/22 22:45 97.0 F 60 16 99/60 95 01/30/22 22:22 100 01/30/22 21:00 62 112/66 97 01/30/22 20:03 63 116/71 97 01/30/22 19:10 97.7 F 79 18 135/75 100 General Appearance: no apparent distress, alert Neurologic Exam: alert, oriented x 3, cooperative, normal mood/affect, nml c erebellar function, nml station & gait, sensation nml, No motor deficits Eye Exam: PERRL/EOMI, eyes nml inspection Ears, Nose, Throat Exam: normal ENT inspection, TMs normal, pharynx normal, moist mucous membranes Neck Exam: normal inspection, non-tender, supple, full range of motion Respiratory Exam: normal breath sounds, lungs clear, No respiratory distress Cardiovascular Exam: regular rate/rhythm, normal heart sounds, normal peripheral pulses Gastrointestinal/Abdomen Exam: soft, normal bowel sounds, No tenderness, No mass Back Exam: normal inspection, normal range of motion, No CVA tenderness, No vertebral tenderness Extremity Exam: normal inspection, normal range of motion, pelvis stable Skin Exam: normal color, warm, dry, No rash Wound Assessment: Skin/Wound Assessment Wound/Incision Assessment Start: 01/30/22 23:04 Text: Status: Active Freq: Q6H Protocol: Document 01/31/22 08:00 EK (Rec: 01/31/22 09:30 EK [id number]) Wound Photo Photo Taken No Lymphatic Exam: No adenopathy Results - Labs Lab/Micro Results: Lab Results-Last 24 Hours 01/30/22 01/30/22 01/30/22 Range/Units 19:20 19:20 19:20 WBC 5.9 (4.0-10.5) x10^3/uL RBC 3.79 L (4.1-5.6) x10^6/uL Hgb 10.8 L (12.5-18.0) g/dL Hct 34.2 L (42-50) % MCV 90.2 (78-100) fL MCH 28.5 (26-32) pg MCHC 31.6 L (32-36) g/dL RDW 15.1 H (11.5-14.0) % Plt Count 288 (150-450) x10^3/uL MPV 9.1 (7.5-11.0) fL Gran % 51.8 (36.0-66.0) % Immature Gran % (Auto) 0.2 (0.00-0.4) % Nucleat RBC Rel Count 0.0 (0.00-0.1) % Eos # (Auto) 0.20 (0-0.5) x10^3/uL Immature Gran # (Auto) 0.01 (0.00-0.03) x10^3u/L Absolute Lymphs (auto) 2.10 (1.0-4.6) x10^3/uL Absolute Monos (auto) 0.53 (0.0-1.3) x10^3/uL Absolute Nucleated RBC 0.00 (0.00-0.01) x10^3u/L Lymphocytes % 35.4 (24.0-44.0) % Monocytes % 8.9 (0.0-12.0) % Eosinophils % 3.4 (0.00-5.0) % Basophils % 0.3 (0.0-0.4) % Absolute Granulocytes 3.07 (1.4-6.9) x10^3/uL Basophils # 0.02 (0-0.4) x10^3/uL PT 11.4 (9.4-12.5) SECONDS INR 1.08 (0.8-3.0) APTT 27.5 (25.1-36.5) SECONDS Sodium 136 L (137-145) mmol/L Potassium 4.4 (3.5-5.1) mmol/L Chloride 101 (98-107) mmol/L Carbon Dioxide 29 (22-30) mmol/L Anion Gap 10.0 (5-15) MEQ/L BUN 12 (9-20) mg/dL Creatinine 0.69 (0.66-1.25) mg/dL Estimated GFR > 60.0 ML/MIN Glucose 186 H (74-106) mg/dL Calcium 8.9 (8.4-10.2) mg/dL Magnesium 1.8 (1.6-2.3) mg/dL Total Bilirubin 0.90 (0.2-1.3) mg/dL AST 69 H (17-59) U/L ALT 72 H (0-50) U/L Alkaline Phosphatase 139 H (38-126) U/L Troponin I (0.000-0.034) ng/mL NT-Pro-B Natriuret Pep 88.7 (0-900) pg/mL Serum Total Protein 7.6 (6.3-8.2) g/dL Albumin 3.9 (3.5-5.0) g/dL Triglycerides (30-150) mg/dL Cholesterol (50-200) mg/dL LDL Cholesterol (30-100) mg/dL HDL Cholesterol (40-60) mg/dL Heart Disease Risk Ratio Influenza Type A Ag (NEGATIVE) Influenza Type B Ag (NEGATIVE) RSV (PCR) (Negative) SARS-CoV-2 (PCR) (NEGATIVE) 01/30/22 01/30/22 01/30/22 Range/Units 19:20 20:40 23:30 WBC (4.0-10.5) x10^3/uL RBC (4.1-5.6) x10^6/uL Hgb (12.5-18.0) g/dL Hct (42-50) % MCV (78-100) fL MCH (26-32) pg MCHC (32-36) g/dL RDW (11.5-14.0) % Plt Count (150-450) x10^3/uL MPV (7.5-11.0) fL Gran % (36.0-66.0) % Immature Gran % (Auto) (0.00-0.4) % Nucleat RBC Rel Count (0.00-0.1) % Eos # (Auto) (0-0.5) x10^3/uL Immature Gran # (Auto) (0.00-0.03) x10^3u/L Absolute Lymphs (auto) (1.0-4.6) x10^3/uL Absolute Monos (auto) (0.0-1.3) x10^3/uL Absolute Nucleated RBC (0.00-0.01) x10^3u/L Lymphocytes % (24.0-44.0) % Monocytes % (0.0-12.0) % Eosinophils % (0.00-5.0) % Basophils % (0.0-0.4) % Absolute Granulocytes (1.4-6.9) x10^3/uL Basophils # (0-0.4) x10^3/uL PT (9.4-12.5) SECONDS INR (0.8-3.0) APTT (25.1-36.5) SECONDS Sodium (137-145) mmol/L Potassium (3.5-5.1) mmol/L Chloride (98-107) mmol/L Carbon Dioxide (22-30) mmol/L Anion Gap (5-15) MEQ/L BUN (9-20) mg/dL Creatinine (0.66-1.25) mg/dL Estimated GFR ML/MIN Glucose (74-106) mg/dL Calcium (8.4-10.2) mg/dL Magnesium (1.6-2.3) mg/dL Total Bilirubin (0.2-1.3) mg/dL AST (17-59) U/L ALT (0-50) U/L Alkaline Phosphatase (38-126) U/L Troponin I < 0.012 < 0.012 (0.000-0.034) ng/mL NT-Pro-B Natriuret Pep (0-900) pg/mL Serum Total Protein (6.3-8.2) g/dL Albumin (3.5-5.0) g/dL Triglycerides (30-150) mg/dL Cholesterol (50-200) mg/dL LDL Cholesterol (30-100) mg/dL HDL Cholesterol (40-60) mg/dL Heart Disease Risk Ratio Influenza Type A Ag NEGATIVE (NEGATIVE) Influenza Type B Ag NEGATIVE (NEGATIVE) RSV (PCR) NEGATIVE (Negative) SARS-CoV-2 (PCR) NEGATIVE (NEGATIVE) 01/31/22 01/31/22 Range/Units 03:50 03:50 WBC (4.0-10.5) x10^3/uL RBC (4.1-5.6) x10^6/uL Hgb (12.5-18.0) g/dL Hct (42-50) % MCV (78-100) fL MCH (26-32) pg MCHC (32-36) g/dL RDW (11.5-14.0) % Plt Count (150-450) x10^3/uL MPV (7.5-11.0) fL Gran % (36.0-66.0) % Immature Gran % (Auto) (0.00-0.4) % Nucleat RBC Rel Count (0.00-0.1) % Eos # (Auto) (0-0.5) x10^3/uL Immature Gran # (Auto) (0.00-0.03) x10^3u/L Absolute Lymphs (auto) (1.0-4.6) x10^3/uL Absolute Monos (auto) (0.0-1.3) x10^3/uL Absolute Nucleated RBC (0.00-0.01) x10^3u/L Lymphocytes % (24.0-44.0) % Monocytes % (0.0-12.0) % Eosinophils % (0.00-5.0) % Basophils % (0.0-0.4) % Absolute Granulocytes (1.4-6.9) x10^3/uL Basophils # (0-0.4) x10^3/uL PT (9.4-12.5) SECONDS INR (0.8-3.0) APTT (25.1-36.5) SECONDS Sodium (137-145) mmol/L Potassium (3.5-5.1) mmol/L Chloride (98-107) mmol/L Carbon Dioxide (22-30) mmol/L Anion Gap (5-15) MEQ/L BUN (9-20) mg/dL Creatinine (0.66-1.25) mg/dL Estimated GFR ML/MIN Glucose (74-106) mg/dL Calcium (8.4-10.2) mg/dL Magnesium (1.6-2.3) mg/dL Total Bilirubin (0.2-1.3) mg/dL AST (17-59) U/L ALT (0-50) U/L Alkaline Phosphatase (38-126) U/L Troponin I < 0.012 (0.000-0.034) ng/mL NT-Pro-B Natriuret Pep (0-900) pg/mL Serum Total Protein (6.3-8.2) g/dL Albumin (3.5-5.0) g/dL Triglycerides 74 (30-150) mg/dL Cholesterol 66 (50-200) mg/dL LDL Cholesterol < 36 (30-100) mg/dL HDL Cholesterol 24 L (40-60) mg/dL Heart Disease Risk Ratio 2.7 Influenza Type A Ag (NEGATIVE) Influenza Type B Ag (NEGATIVE) RSV (PCR) (Negative) SARS-CoV-2 (PCR) (NEGATIVE) - Radiology Impressions Radiology Exams & Impressions: Radiology Procedures Category Date Time Status CHEST 1 VIEW (PORTABLE) Stat Exams 01/30/22 19:19 Completed - Other Procedures and Tests Respiratory Therapy 01/31/22 05:00 EKG DAILY 02/01/22 05:00 EKG DAILY 02/02/22 05:00 EKG DAILY 02/03/22 05:00 EKG DAILY Assessment/Plan (1) Chest pain Current Visit: Yes Status: Resolved Code(s): R07.9 - CHEST PAIN, UNSPECIFIED (2) Unstable angina Current Visit: Yes Status: Chronic (3) Chest pain, rule out acute myocardial infarction Current Visit: No Status: Resolved Code(s): R07.9 - CHEST PAIN, UNSPECIFIED Hospital Summary - Hospital Course Hospital Course: Chief Complaint Diagnosis Unstable Angina Allergies Allergy/AdvReac Type Severity Reaction Status Date / Time Sulfa (Sulfonamide Allergy Mild Verified 01/30/22 19:19 Antibiotics) Vital Signs (Last 24 hours) Temp Pulse Resp BP Pulse Ox 01/31/22 11:49 97.7 F 63 12 103/56 93 L 01/31/22 07:10 98.0 F 71 16 101/59 95 01/31/22 04:00 97 01/31/22 03:57 98.2 F 63 16 105/62 97 01/30/22 22:45 97.0 F 60 16 99/60 95 01/30/22 22:22 100 01/30/22 21:00 62 112/66 97 01/30/22 20:03 63 116/71 97 01/30/22 19:10 97.7 F 79 18 135/75 100 Home Medications Medication Instructions Recorded Confirmed Last Taken Type Duloxetine HCl [Cymbalta] 30 mg PO BID 01/30/22 01/30/22 01/30/22 History Famotidine 20 mg [Pepcid 20 20 mg PO BID 01/30/22 01/30/22 01/30/22 History MG] Insulin Degludec [Tresiba 10 units SQ HS 01/30/22 01/30/22 01/30/22 History Flextouch U-100] Oxycodone HCl 5 mg Ir [Oxy-IR 5 5 mg PO QID 01/30/22 01/30/22 01/30/22 History MG] Psyllium Husk (with Sugar) [Fiber 2 tsp PO BID 01/30/22 01/30/22 Unknown History Powder] Ticagrelor [Brilinta] 1 ea PO DAILY 01/30/22 01/30/22 01/30/22 History polyethylene glycoL 3350 [Miralax 17 g PO BID 01/30/22 01/30/22 Unknown History Powder] Current Medications Generic Name Dose Route Start Last Admin Trade Name Freq PRN Reason Stop Dose Admin Acetaminophen 650 mg 01/30/22 20:29 Acetaminophen 325 Mg Tablet PO 03/01/22 20:28 Q4H PRN PRN PAIN AND/OR FEVER Al Hydrox/Mg Hydrox/Simethicone 30 ml 01/30/22 20:29 Mag Hydrox/Al Hydrox/Simeth 30 Ml Udcup PO 03/01/22 20:28 Q4H PRN PRN INDIGESTION Aspirin 325 mg 01/31/22 10:00 01/31/22 10:41 Aspirin 325 Mg Tablet.Ec PO 03/02/22 09:59 325 mg DAILY CLAUDINE Administration Enoxaparin Sodium 40 mg 01/31/22 10:00 01/31/22 10:41 Enoxaparin Sodium 40 Mg/0.4 Ml Syringe SQ 03/02/22 09:59 40 mg DAILY CLAUDINE Administration Magnesium Hydroxide 30 - 60 ml 01/30/22 20:29 Magnesium Hydroxide 30 Ml Udcup PO 03/01/22 20:28 QDP PRN CONSTIPATION Nitroglycerin 1 gm 01/30/22 22:00 01/31/22 05:27 Nitroglycerin 1 Gm Packet TOP 03/01/22 21:59 1 gm Q8HT CLAUDINE Administration Ondansetron HCl 4 mg 01/30/22 20:29 Ondansetron Hcl 4 Mg/2 Ml Vial IV 03/01/22 20:28 Q4H PRN PRN NAUSEA/VOMITING Oxycodone HCl 5 mg 01/31/22 07:00 Oxycodone Hcl 5 Mg Ir Tab PO 02/05/22 06:59 QID PRN PRN PAIN Senna/Docusate Sodium 2 udtab 01/30/22 20:29 Senna/Docusate Sodium 1 Udtab Tablet PO 03/01/22 20:28 BID PRN PRN CONSTIPATION Discontinued Medications Generic Name Dose Route Start Last Admin Trade Name Freq PRN Reason Stop Dose Admin Aspirin 324 mg 01/30/22 20:21 01/30/22 20:25 Aspirin 81 Mg Tab.Chew PO 01/30/22 20:22 324 mg STAT ONE Administration Insulin Glargine 10 unit 01/31/22 23:47 Insulin Glargine 1 Unit SQ 01/31/22 23:48 HS ONE Insulin Glargine 10 unit 01/30/22 23:47 01/30/22 23:55 Insulin Glargine 1 Unit SQ 01/30/22 23:48 10 unit HS ONE Administration Nitroglycerin 1 gm 01/30/22 20:33 01/30/22 20:35 Nitroglycerin 1 Gm Packet TOP 01/30/22 20:34 1 gm STAT ONE Administration Oxycodone HCl 5 mg 01/30/22 23:48 01/30/22 23:56 Oxycodone Hcl 5 Mg Ir Tab PO 02/05/22 09:59 5 mg QID PRN Administration PAIN Intake & Output (Last 24 hours) 01/29/22 01/30/22 01/31/22 02/01/22 11:59 11:59 11:59 11:59 Intake Total 360 Output Total 200 Balance 160 Weight 71.4 kg Laboratory Results (Last 24 hours) 01/31/22 01/31/22 01/30/22 03:50 03:50 23:30 WBC RBC Hgb Hct MCV MCH MCHC RDW Plt Count MPV Gran % Immature Gran % (Auto) Nucleat RBC Rel Count Eos # (Auto) Immature Gran # (Auto) Absolute Lymphs (auto) Absolute Monos (auto) Absolute Nucleated RBC Lymphocytes % Monocytes % Eosinophils % Basophils % Absolute Granulocytes Basophils # PT INR APTT Sodium Potassium Chloride Carbon Dioxide Anion Gap BUN Creatinine Estimated GFR Glucose Calcium Magnesium Total Bilirubin AST ALT Alkaline Phosphatase Troponin I < 0.012 < 0.012 NT-Pro-B Natriuret Pep Serum Total Protein Albumin Triglycerides 74 Cholesterol 66 LDL Cholesterol < 36 HDL Cholesterol 24 L Heart Disease Risk Ratio 2.7 Influenza Type A Ag Influenza Type B Ag RSV (PCR) SARS-CoV-2 (PCR) 01/30/22 01/30/22 01/30/22 20:40 19:20 19:20 WBC RBC Hgb Hct MCV MCH MCHC RDW Plt Count MPV Gran % Immature Gran % (Auto) Nucleat RBC Rel Count Eos # (Auto) Immature Gran # (Auto) Absolute Lymphs (auto) Absolute Monos (auto) Absolute Nucleated RBC Lymphocytes % Monocytes % Eosinophils % Basophils % Absolute Granulocytes Basophils # PT 11.4 INR 1.08 APTT 27.5 Sodium Potassium Chloride Carbon Dioxide Anion Gap BUN Creatinine Estimated GFR Glucose Calcium Magnesium Total Bilirubin AST ALT Alkaline Phosphatase Troponin I < 0.012 NT-Pro-B Natriuret Pep Serum Total Protein Albumin Triglycerides Cholesterol LDL Cholesterol HDL Cholesterol Heart Disease Risk Ratio Influenza Type A Ag NEGATIVE Influenza Type B Ag NEGATIVE RSV (PCR) NEGATIVE SARS-CoV-2 (PCR) NEGATIVE 01/30/22 01/30/22 19:20 19:20 WBC 5.9 RBC 3.79 L Hgb 10.8 L Hct 34.2 L MCV 90.2 MCH 28.5 MCHC 31.6 L RDW 15.1 H Plt Count 288 MPV 9.1 Gran % 51.8 Immature Gran % (Auto) 0.2 Nucleat RBC Rel Count 0.0 Eos # (Auto) 0.20 Immature Gran # (Auto) 0.01 Absolute Lymphs (auto) 2.10 Absolute Monos (auto) 0.53 Absolute Nucleated RBC 0.00 Lymphocytes % 35.4 Monocytes % 8.9 Eosinophils % 3.4 Basophils % 0.3 Absolute Granulocytes 3.07 Basophils # 0.02 PT INR APTT Sodium 136 L Potassium 4.4 Chloride 101 Carbon Dioxide 29 Anion Gap 10.0 BUN 12 Creatinine 0.69 Estimated GFR > 60.0 Glucose 186 H Calcium 8.9 Magnesium 1.8 Total Bilirubin 0.90 AST 69 H ALT 72 H Alkaline Phosphatase 139 H Troponin I NT-Pro-B Natriuret Pep 88.7 Serum Total Protein 7.6 Albumin 3.9 Triglycerides Cholesterol LDL Cholesterol HDL Cholesterol Heart Disease Risk Ratio Influenza Type A Ag Influenza Type B Ag RSV (PCR) SARS-CoV-2 (PCR) Orders (Last 24 hours) Category Date Time Status Bedrest ROUTINE Activity 01/30/22 20:29 Active Code Status Order ROUTINE Care 01/30/22 20:29 Active IV Care Q6H Care 01/30/22 20:29 Active Implement Chest Pain Pathway ROUTINE Care 01/30/22 20:[address] in Observation ROUTINE Care 01/30/22 20:30 Active Ezio Amanda, Apply ROUTINE Care 01/30/22 20:29 Active Telemetry q6h Care 01/30/22 22:40 Active Vital Signs Q4H Care 01/30/22 20:29 Active Weight,Daily 0600 Care 01/30/22 20:29 Active Cardio-Pulmonary Rehab .as ordered Cons 01/30/22 23:04 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 Cons 01/30/22 23:04 Active Heart-Healthy Diet Diet 01/31/22 Breakfast Active Discharge Routine Discharge 01/31/22 12:30 Ordered CHEST 1 VIEW (PORTABLE) Stat Exams 01/30/22 19:19 Completed CBC W DIFF Stat Lab 01/30/22 19:20 Completed CMP Stat Lab 01/30/22 19:20 Completed COVID/FLU/RSV Panel Stat Lab 01/30/22 20:40 Completed LIPID PROFILE AM.LAB Lab 01/31/22 03:50 Completed MAGNESIUM Stat Lab 01/30/22 19:20 Completed NT PRO BNP Stat Lab 01/30/22 19:20 Completed PROTIME WITH INR Stat Lab 01/30/22 19:20 Completed PTT Stat Lab 01/30/22 19:20 Completed TROPONIN Q4H Lab 01/30/22 19:20 Completed TROPONIN Q4H Lab 01/30/22 23:30 Completed TROPONIN Q4H Lab 01/31/22 03:50 Completed Acetaminophen 325 mg [Tylenol 325 mg] Med 01/30/22 20:29 Active 650 mg PO Q4H PRN PRN Aspirin 81 gm Chew [Baby Aspirin 81 mg Chew] Med 01/30/22 20:21 Discontinued 324 mg PO STAT ONE Aspirin EC 325 mg [Ecotrin 325 MG] Med 01/31/22 10:00 Active 325 mg PO DAILY Enoxaparin Sodium [Enoxaparin Sodium] Med 01/31/22 10:00 Active 40 mg SQ DAILY Insulin Glargine [Lantus Insulin] Med 01/30/22 23:47 Discontinued 10 unit SQ HS ONE Insulin Glargine [Lantus Insulin] Med 01/31/22 23:47 Discontinued 10 unit SQ HS ONE Mag Hydrox/Al Hydrox/Simeth [Maalox Es 30 ml Unit Med 01/30/22 20:29 Active Dose] 30 ml PO Q4H PRN PRN Magnesium Hydroxide 30 ml [Milk of Magnesia 30 ml Med 01/30/22 20:29 Active ] 30 - 60 ml PO QDP PRN Nitroglycerin 2 %Ointment [Nitro-Bid 2% Ud Packets Med 01/30/22 22:00 Active *] 1 gm TOP Q8HT Nitroglycerin 2 %Ointment [Nitro-Bid 2% Ud Packets Med 01/30/22 20:33 Discontinued *] 1 gm TOP STAT ONE Ondansetron HCl 4 mg/2 ml [Zofran 4 MG/2 ML VIAL] Med 01/30/22 20:29 Active 4 mg IV Q4H PRN PRN Oxycodone HCl 5 mg Ir [Oxy-IR 5 MG] Med 01/30/22 23:48 Discontinued 5 mg PO QID PRN Oxycodone HCl 5 mg Ir [Oxy-IR 5 MG] Med 01/31/22 07:00 Active 5 mg PO QID PRN PRN Senna/Docusate Sodium Tab [Senokot-S Tablet] Med 01/30/22 20:29 Active 2 udtab PO BID PRN PRN EKG DAILY RT 01/31/22 05:00 Active EKG DAILY RT 02/01/22 05:00 Active EKG DAILY RT 02/02/22 05:00 Active EKG DAILY RT 02/03/22 05:00 Active EKG Q8HX2,QAMX3,PRN RT 01/30/22 20:29 Completed Patient Care Notes (Last 24 hours) 01/31/22 11:47 Nursing Note by Susi Dahl PT AMBULATED IN HALLWAY WITH STAND BY ASSIST OF STAFF. PT DENIED CHEST PAIN AND SHORTNESS OF BREATH. Initialized on 01/31/22 11:47 - END OF NOTE - Vitals & Intake/Output Vital Signs: Vital Signs Temperature 97.7 F 01/31/22 11:49 Pulse Rate 63 01/31/22 11:49 Respiratory Rate 12 01/31/22 11:49 Blood Pressure 103/56 01/31/22 11:49 O2 Sat by Pulse Oximetry 93 L 01/31/22 11:49 Intake & Output: Intake & Output 01/29/22 01/30/22 01/31/22 02/01/22 11:59 11:59 11:59 11:59 Intake Total 360 Output Total 200 Balance 160 Weight 71.4 kg - Lab Result Diagrams: 01/30/22 19:20 01/30/22 19:20 Lab Results-Last 24 Hrs: Lab Results-Last 24 Hours 01/30/22 01/30/22 01/30/22 Range/Units 19:20 19:20 19:20 WBC 5.9 (4.0-10.5) x10^3/uL RBC 3.79 L (4.1-5.6) x10^6/uL Hgb 10.8 L (12.5-18.0) g/dL Hct 34.2 L (42-50) % MCV 90.2 (78-100) fL MCH 28.5 (26-32) pg MCHC 31.6 L (32-36) g/dL RDW 15.1 H (11.5-14.0) % Plt Count 288 (150-450) x10^3/uL MPV 9.1 (7.5-11.0) fL Gran % 51.8 (36.0-66.0) % Immature Gran % (Auto) 0.2 (0.00-0.4) % Nucleat RBC Rel Count 0.0 (0.00-0.1) % Eos # (Auto) 0.20 (0-0.5) x10^3/uL Immature Gran # (Auto) 0.01 (0.00-0.03) x10^3u/L Absolute Lymphs (auto) 2.10 (1.0-4.6) x10^3/uL Absolute Monos (auto) 0.53 (0.0-1.3) x10^3/uL Absolute Nucleated RBC 0.00 (0.00-0.01) x10^3u/L Lymphocytes % 35.4 (24.0-44.0) % Monocytes % 8.9 (0.0-12.0) % Eosinophils % 3.4 (0.00-5.0) % Basophils % 0.3 (0.0-0.4) % Absolute Granulocytes 3.07 (1.4-6.9) x10^3/uL Basophils # 0.02 (0-0.4) x10^3/uL PT 11.4 (9.4-12.5) SECONDS INR 1.08 (0.8-3.0) APTT 27.5 (25.1-36.5) SECONDS Sodium 136 L (137-145) mmol/L Potassium 4.4 (3.5-5.1) mmol/L Chloride 101 (98-107) mmol/L Carbon Dioxide 29 (22-30) mmol/L Anion Gap 10.0 (5-15) MEQ/L BUN 12 (9-20) mg/dL Creatinine 0.69 (0.66-1.25) mg/dL Estimated GFR > 60.0 ML/MIN Glucose 186 H (74-106) mg/dL Calcium 8.9 (8.4-10.2) mg/dL Magnesium 1.8 (1.6-2.3) mg/dL Total Bilirubin 0.90 (0.2-1.3) mg/dL AST 69 H (17-59) U/L ALT 72 H (0-50) U/L Alkaline Phosphatase 139 H (38-126) U/L Troponin I (0.000-0.034) ng/mL NT-Pro-B Natriuret Pep 88.7 (0-900) pg/mL Serum Total Protein 7.6 (6.3-8.2) g/dL Albumin 3.9 (3.5-5.0) g/dL Triglycerides (30-150) mg/dL Cholesterol (50-200) mg/dL LDL Cholesterol (30-100) mg/dL HDL Cholesterol (40-60) mg/dL Heart Disease Risk Ratio Influenza Type A Ag (NEGATIVE) Influenza Type B Ag (NEGATIVE) RSV (PCR) (Negative) SARS-CoV-2 (PCR) (NEGATIVE) 11/21/22 11/21/22 11/21/22 Range/Units 19:20 20:40 23:30 WBC (4.0-10.5) x10^3/uL RBC (4.1-5.6) x10^6/uL Hgb (12.5-18.0) g/dL Hct (42-50) % MCV (78-100) fL MCH (26-32) pg MCHC (32-36) g/dL RDW (11.5-14.0) % Plt Count (150-450) x10^3/uL MPV (7.5-11.0) fL Gran % (36.0-66.0) % Immature Gran % (Auto) (0.00-0.4) % Nucleat RBC Rel Count (0.00-0.1) % Eos # (Auto) (0-0.5) x10^3/uL Immature Gran # (Auto) (0.00-0.03) x10^3u/L Absolute Lymphs (auto) (1.0-4.6) x10^3/uL Absolute Monos (auto) (0.0-1.3) x10^3/uL Absolute Nucleated RBC (0.00-0.01) x10^3u/L Lymphocytes % (24.0-44.0) % Monocytes % (0.0-12.0) % Eosinophils % (0.00-5.0) % Basophils % (0.0-0.4) % Absolute Granulocytes (1.4-6.9) x10^3/uL Basophils # (0-0.4) x10^3/uL PT (9.4-12.5) SECONDS INR (0.8-3.0) APTT (25.1-36.5) SECONDS Sodium (137-145) mmol/L Potassium (3.5-5.1) mmol/L Chloride (98-107) mmol/L Carbon Dioxide (22-30) mmol/L Anion Gap (5-15) MEQ/L BUN (9-20) mg/dL Creatinine (0.66-1.25) mg/dL Estimated GFR ML/MIN Glucose (74-106) mg/dL Calcium (8.4-10.2) mg/dL Magnesium (1.6-2.3) mg/dL Total Bilirubin (0.2-1.3) mg/dL AST (17-59) U/L ALT (0-50) U/L Alkaline Phosphatase (38-126) U/L Troponin I < 0.012 < 0.012 (0.000-0.034) ng/mL NT-Pro-B Natriuret Pep (0-900) pg/mL Serum Total Protein (6.3-8.2) g/dL Albumin (3.5-5.0) g/dL Triglycerides (30-150) mg/dL Cholesterol (50-200) mg/dL LDL Cholesterol (30-100) mg/dL HDL Cholesterol (40-60) mg/dL Heart Disease Risk Ratio Influenza Type A Ag NEGATIVE (NEGATIVE) Influenza Type B Ag NEGATIVE (NEGATIVE) RSV (PCR) NEGATIVE (Negative) SARS-CoV-2 (PCR) NEGATIVE (NEGATIVE) 01/31/22 01/31/22 Range/Units 03:50 03:50 WBC (4.0-10.5) x10^3/uL RBC (4.1-5.6) x10^6/uL Hgb (12.5-18.0) g/dL Hct (42-50) % MCV (78-100) fL MCH (26-32) pg MCHC (32-36) g/dL RDW (11.5-14.0) % Plt Count (150-450) x10^3/uL MPV (7.5-11.0) fL Gran % (36.0-66.0) % Immature Gran % (Auto) (0.00-0.4) % Nucleat RBC Rel Count (0.00-0.1) % Eos # (Auto) (0-0.5) x10^3/uL Immature Gran # (Auto) (0.00-0.03) x10^3u/L Absolute Lymphs (auto) (1.0-4.6) x10^3/uL Absolute Monos (auto) (0.0-1.3) x10^3/uL Absolute Nucleated RBC (0.00-0.01) x10^3u/L Lymphocytes % (24.0-44.0) % Monocytes % (0.0-12.0) % Eosinophils % (0.00-5.0) % Basophils % (0.0-0.4) % Absolute Granulocytes (1.4-6.9) x10^3/uL Basophils # (0-0.4) x10^3/uL PT (9.4-12.5) SECONDS INR (0.8-3.0) APTT (25.1-36.5) SECONDS Sodium (137-145) mmol/L Potassium (3.5-5.1) mmol/L Chloride (98-107) mmol/L Carbon Dioxide (22-30) mmol/L Anion Gap (5-15) MEQ/L BUN (9-20) mg/dL Creatinine (0.66-1.25) mg/dL Estimated GFR ML/MIN Glucose (74-106) mg/dL Calcium (8.4-10.2) mg/dL Magnesium (1.6-2.3) mg/dL Total Bilirubin (0.2-1.3) mg/dL AST (17-59) U/L ALT (0-50) U/L Alkaline Phosphatase (38-126) U/L Troponin I < 0.012 (0.000-0.034) ng/mL NT-Pro-B Natriuret Pep (0-900) pg/mL Serum Total Protein (6.3-8.2) g/dL Albumin (3.5-5.0) g/dL Triglycerides 74 (30-150) mg/dL Cholesterol 66 (50-200) mg/dL LDL Cholesterol < 36 (30-100) mg/dL HDL Cholesterol 24 L (40-60) mg/dL Heart Disease Risk Ratio 2.7 Influenza Type A Ag (NEGATIVE) Influenza Type B Ag (NEGATIVE) RSV (PCR) (Negative) SARS-CoV-2 (PCR) (NEGATIVE) - Radiology Exams Ordered Rad Exams-Entire Visit: Radiology Procedures Category Date Time Status CHEST 1 VIEW (PORTABLE) Stat Exams 01/30/22 19:19 Completed - Procedures and Test Procedures and Tests throughout Hospitalization: Therapy Orders & Screens 01/30/22 20:29 EKG Q8HX2,QAMX3,PRN Comment: 01/31/22 05:00 EKG DAILY Comment: 02/01/22 05:00 EKG DAILY Comment: 02/02/22 05:00 EKG DAILY Comment: 02/03/22 05:00 EKG DAILY Comment: - Discharge Discharge Date: 01/31/22 Disposition: Home, Self-Care Condition: Stable Prescriptions: Continue Ranolazine 500 MG [Ranexa 500 MG] 500 mg PO BID Pantoprazole Sodium 40 mg PO DAILY Folic Acid/Vit B Complex and C [Folbee Plus Tablet] 5 mg PO DAILY Aspirin EC 81 mg [Ecotrin 81 mg] 81 mg PO DAILY ALPRAZolam [Alprazolam] 0.5 mg PO HS Atorvastatin Calcium [Lipitor] 80 mg PO DAILY Ticagrelor [Brilinta] 1 ea PO DAILY Oxycodone HCl 5 mg Ir [Oxy-IR 5 MG] 5 mg PO QID Insulin Degludec [Tresiba Flextouch U-100] 10 units SQ HS Duloxetine HCl [Cymbalta] 30 mg PO BID Famotidine 20 mg [Pepcid 20 MG] 20 mg PO BID polyethylene glycoL 3350 [Miralax Powder] 17 g PO BID Psyllium Husk (with Sugar) [Fiber Powder] 2 tsp PO BID Instructions: Angina (DC) Follow up with: LORE MOON [CONSULTING PHYSICIAN] - 02/10/22 1:15 pm ALISIA FLETCHER MD [Primary Care Provider] - 02/08/22 10:15 am ([place] [facility]) Forms: Discharge Instructions
[2022-01-31] MEDS ORDERED: Oxy-IR 5 MG PO SCH (13:30)
[2022-01-31] MEDS ORDERED: ZOCOR 20MG PO SCH (14:00)
[2022-01-31] MEDS ORDERED: Ranexa 500 MG PO SCH (14:00)
[2022-01-31] MEDS ORDERED: Cymbalta 30 MG Capsule PO SCH (14:00)
[2022-01-31] MEDS ORDERED: Pepcid 20 MG PO SCH (14:00)
[2022-01-31] MEDS ORDERED: VITA-BEE WITH C PO SCH (14:00)
[2022-01-31] MEDS ORDERED: Metamucil PACKET PO SCH (14:00)
[2022-01-31] MEDS ORDERED: Protonix 40MG Tablet PO SCH (14:00)
[2022-01-31] MEDS ORDERED: BRILINTA PO SCH (14:00)
[2022-01-31] MEDS ORDERED: Miralax Powder 17GM PACKET PO SCH (14:00)
[2022-01-31] MEDS ORDERED: Lantus Insulin SQ SCH (22:00)
[2022-01-31] MEDS ORDERED: PSYLLIUM HUSK PO SCH (22:00)
[2022-01-31] MEDS ORDERED: NON-FORMULARY ITEM (Insulin Degludec [Tresiba Flextouch U-100] 100 UNIT/ML Insuln.Pen) SQ SCH (22:00)
[2022-01-31] MEDS ORDERED: xanAX 0.5 MG PO SCH (22:00)
[2022-01-31] MEDS ORDERED: POLYETHYLENE GLYCOL PO SCH (22:00)
[2022-01-31] MEDS ORDERED: [UNRECOGNIZED DRUG - OTHER] PO SCH (22:00)
[2022-01-31] MEDS ORDERED: Lantus Insulin SQ ONE (23:47)
[2022-02-01] MEDS ORDERED: ECOTRIN 81 MG PO SCH (10:00)
[2022-02-01] MEDS ORDERED: NON-FORMULARY ITEM (Atorvastatin Calcium [Lipitor] 80 MG Tablet) PO SCH (10:00)
[2022-02-01] MEDS ORDERED: FOLIC ACID PO SCH (10:00)
[2022-02-01] MEDS ORDERED: VIT B COMPLEX AND C PO SCH (10:00)
== END 2022-01-31 13:45 | disposition home or self-care (01) ==
LOC: ED 19:03 → MED SURG 22:40
PROVIDERS: ADMIT General Practice; ATTEND General Practice
DX: R07.9 Chest pain, unspecified (principal); E11.9 Type 2 diabetes mellitus without complications; E78.5 Hyperlipidemia, unspecified; I25.10 Atherosclerotic heart disease of native coronary artery without angina pectoris; Z79.899 Other long term (current) drug therapy; Z20.828 Contact with and (suspected) exposure to other viral communicable diseases
CPT/HCPCS: 0241U; 36000; 36415; 71045; 80053; 80061; 83721; 83735; 83880; 84484; 85025; 85610; 85730; 93005; 99285; 93268; J1650; A9270-GY; G0378

== ENCOUNTER 2024-05-10 21:10 | Emergency (ER) | payer MEDICARE, OTHER ==
[2024-05-10 21:28] VITALS: TEMP 98.3
[2024-05-10 21:35] LABS: Absolute Neutrophil Ct (ANC) 4.72 x10^3/uL (1.78-5.38); BASOPHIL % 0.3 % (0.2-1.2); Basophil (Absolute #) 0.02 x10^3/uL (0.01-0.08); Eosinophil % 3.1 % (0.8-7.0); Eosinophil (Absolute #) 0.25 x10^3/uL (0.04-0.54); Hematocrit 33.5 % (40.1-51.0); Hemoglobin 11.5 g/dL (13.7-17.5); IMMATURE GRAN # 0.03 x10^3u/L (0.001-0.031); IMMATURE GRAN % 0.4 % (0.001-0.429); Lymphocyte (Absolute #) 1.81 x10^3/uL (1.32-3.57); Lymphocytes % 22.7 % (21.8-53.1); Mean Cell Volume 91.5 fL (79.0-92.2); Mean Corpuscular Hemoglobin 31.4 pg (25.7-32.2); Mean Corpuscular Hgb Concent. 34.3 g/dL (32.3-36.5); Mean Platelet Volume 9.5 fL (9.4-12.4); Monocyte (Absolute #) 1.14 x10^3/uL (0.30-0.82); Monocytes % 14.3 % (5.3-12.2); Neutrophil % 59.2 % (34.0-67.9); Platelet Count 228 x10^3/uL (163-337); Red Blood Count 3.66 x10^6/uL (4.63-6.08); Red Cell Distribution Width 13.4 % (11.6-14.4)
--- NOTE | 2024-05-10 21:46 | ERPHSYRPT ---
- History of Present Illness Historian: patient Exam Limitations: no limitations Patient Subjective Stated Complaint: "I've been having chills since night and Sunday morning and some chest discomfort. It hurts on my left side and up my neck and down my left arm". Triage Nursing Assessment: Pt presents to ER with complaints of chest pain that radiates down left arm and bilateral sides of neck since yesterday morning. States has had chills as well that began on night but worsening today. Was better yesterday afternoon but pain returned tonight. Took nitro this evening which relieved some of this pain. Pt is stating pain is minimal at triage. States pain is a dull pressure. Denies nausea, vomiting, and diarrhea. States it is slightly short of breath. Physician History: Patient has a complaints of chest pain. It started yesterday. It lasted a few minutes. It is in his left chest and radiates down his left arm and then up into his neck. It also radiates to his left shoulder blade. He had another episode earlier. He said he is just feeling really fatigued and rundown. He has a history of 4 stents that were placed about 17 years ago. He is not really noticing a lot of chest pain on exertion but says he does get fatigue. He has not had any nausea vomiting or diaphoresis with it. Nothing makes his symptoms better.He did have some chills yesterday but those have gone away. He has not had any fever since.He took a nitro but that was after the pain had gone away. Activities at Onset: none Nitro Today/Relief: 0.4 mg x 1 Aspirin Treatment Today: no aspirin today Allergies/Adverse Reactions: Sulfa (Sulfonamide Antibiotics) Allergy (Mild, Verified 05/10/24 21:22) unsure has been told for years he has allergy Home Medications: Ranolazine 500 MG [Ranexa 500 MG] 500 mg PO BID 01/17/13 [History] ALPRAZolam [Alprazolam] 0.5 mg PO HS 03/09/20 [History] Aspirin EC 81 mg [Ecotrin 81 mg] 81 mg PO DAILY 03/09/20 [History] Atorvastatin Calcium [Lipitor] 40 mg PO DAILY 03/09/20 [History] Folic Acid/Vit B Complex and C [Folbee Plus Tablet] 5 mg PO DAILY 03/09/20 [History] Pantoprazole Sodium 40 mg PO DAILY 03/09/20 [History] Famotidine 20 mg [Pepcid 20 MG] 20 mg PO BID 01/30/22 [History] Insulin Degludec [Tresiba Flextouch U-100] 20 units SQ BREAKFAST 01/30/22 [History] Ticagrelor [Brilinta] 1 ea PO DAILY 01/30/22 [History] Meloxicam 7.5 mg PO DAILY 05/10/24 [History] Hx Tetanus, Diphtheria Vaccination/Date Given: No (UNKNOWN) Hx Influenza Vaccination/Date Given: No Hx Pneumococcal Vaccination/Date Given: No Immunizations Up to Date: No Travel Risk - International Travel Have you traveled outside of the country in past 3 weeks: No - Emerging Infectious Disease Are you exhibiting symptoms associated with any current EIDs: Yes - Review of Systems Constitutional: No Symptoms Eyes: No Symptoms Ears, Nose, & Throat: No Symptoms Respiratory: No Symptoms Cardiac: Chest Pain Abdominal/Gastrointestinal: No Symptoms - Past Medical History Pertinent Past Medical History: Yes Neurological History: No Pertinent History ENT History: No Pertinent History Cardiac History: Coronary Artery Disease, High Cholesterol, Myocardial Infarction (ND) Respiratory History: No Pertinent History Endocrine Medical History: Diabetes Type II Musculoskeletal History: No Pertinent History GI Medical History: No Pertinent History, Other History: No Pertinent History, Other Psycho-Social History: No Pertinent History Male Reproductive Disorders: No Pertinent History Other Medical History: ampullary cancer - Past Surgical History Past Surgical History: Yes Neuro Surgical History: No Pertinent History Cardiac: Cardiac Stent Respiratory: No Pertinent History Gastrointestinal: Appendectomy, Cholecystectomy Genitourinary: No Pertinent History Musculoskeletal: No Pertinent History Male Surgical History: No Pertinent History Other Surgical History: 4 stents, whipple x2. stent in liver - Social History Smoking Status: Never smoker Exposure to second hand smoke: No Drug Use: none - Social Determinants of Health Will the patient participate in the screening: Yes Do you worry about a steady place to live?: No Do you have any problems with any of the following?: No known problems In the past 12 months,have you had to go without utilities?: No Transportation Issues: No Has anyone in your support network made you feel unsafe?: No Have you or anyone in your house had to go w/o enough food: No - Nursing Vital Signs Nursing Vital Signs: Initial Vital Signs Temperature 98.3 F 05/10/24 21:12 Pulse Rate 77 05/10/24 21:12 Respiratory Rate 18 05/10/24 21:12 Blood Pressure 118/67 05/10/24 21:12 O2 Sat by Pulse Oximetry 99 05/10/24 21:12 Pain Scale Pain Intensity 0 - Physical Exam General Appearance: no apparent distress Eye Exam: PERRL/EOMI Ears, Nose, Throat Exam: normal ENT inspection, TMs normal, pharynx normal Neck Exam: normal inspection, non-tender Respiratory Exam: normal breath sounds, lungs clear, No chest tenderness, No respiratory distress Cardiovascular Exam: regular rate/rhythm, normal heart sounds Gastrointestinal/Abdomen Exam: soft, normal bowel sounds Extremity Exam: normal inspection, normal range of motion, No pedal edema Neurologic Exam: alert, oriented x 3, cooperative Skin Exam: normal color, warm, dry SpO2: 99 Ordered Tests: Active Orders 24 hr Category Date Time Status EKG-ER Only STAT Care 05/10/24 21:23 Active CHEST 1 VIEW (PORTABLE) Stat Exams 05/10/24 21:23 Taken CBC W DIFF Stat Lab 05/10/24 21:32 Completed CMP Stat Lab 05/10/24 21:32 Completed TROPONIN Q4H Lab 05/10/24 21:32 Completed TROPONIN Q4H Lab 05/11/24 00:26 Completed TROPONIN Q4H Lab 05/11/24 04:30 Ordered Lab/Rad Data: Laboratory Result Diagrams 05/10/24 21:32 05/10/24 21:32 Laboratory Results 05/11/24 05/10/24 05/10/24 Range/Units 00:26 21:32 21:32 WBC (4.23-9.07) x10^3/uL RBC (4.63-6.08) x10^6/uL Hgb (13.7-17.5) g/dL Hct (40.1-51.0) % MCV (79.0-92.2) fL MCH (25.7-32.2) pg MCHC (32.3-36.5) g/dL RDW (11.6-14.4) % Plt Count (163-337) x10^3/uL MPV (9.4-12.4) fL Gran % (34.0-67.9) % Immature Gran % (Auto) (0.001-0.429) % Nucleat RBC Rel Count (0.00-0.2) % Eos # (Auto) (0.04-0.54) x10^3/uL Immature Gran # (Auto) (0.001-0.031) x10^3u/L Absolute Lymphs (auto) (1.32-3.57) x10^3/uL Absolute Monos (auto) (0.30-0.82) x10^3/uL Absolute Nucleated RBC (0.00-0.012) x10^3u/L Lymphocytes % (21.8-53.1) % Monocytes % (5.3-12.2) % Eosinophils % (0.8-7.0) % Basophils % (0.2-1.2) % Absolute Granulocytes (1.78-5.38) x10^3/uL Basophils # (0.01-0.08) x10^3/uL Sodium 139 (135-145) mmol/L Potassium 4.0 (3.5-5.1) mmol/L Chloride 106 (98-107) mmol/L Carbon Dioxide 21 L (22-30) mmol/L Anion Gap 16.4 H (5-15) MEQ/L BUN 12 (9-20) mg/dL Creatinine 0.76 (0.66-1.25) mg/dL Estimated GFR 95.5 ML/MIN Glucose 209 H (74-106) mg/dL Calcium 8.9 (8.4-10.2) mg/dL Total Bilirubin 1.10 (0.2-1.3) mg/dL AST 66 H (17-59) U/L ALT 80 H (0-50) U/L Alkaline Phosphatase 97 (38-126) U/L Troponin I < 0.012 < 0.012 (0.000-0.033) ng/mL Serum Total Protein 6.9 (6.3-8.2) g/dL Albumin 4.0 (3.5-5.0) g/dL 05/10/24 Range/Units 21:32 WBC 8.0 (4.23-9.07) x10^3/uL RBC 3.66 L (4.63-6.08) x10^6/uL Hgb 11.5 L (13.7-17.5) g/dL Hct 33.5 L (40.1-51.0) % MCV 91.5 (79.0-92.2) fL MCH 31.4 (25.7-32.2) pg MCHC 34.3 (32.3-36.5) g/dL RDW 13.4 (11.6-14.4) % Plt Count 228 (163-337) x10^3/uL MPV 9.5 (9.4-12.4) fL Gran % 59.2 (34.0-67.9) % Immature Gran % (Auto) 0.4 (0.001-0.429) % Nucleat RBC Rel Count 0.0 (0.00-0.2) % Eos # (Auto) 0.25 (0.04-0.54) x10^3/uL Immature Gran # (Auto) 0.03 (0.001-0.031) x10^3u/L Absolute Lymphs (auto) 1.81 (1.32-3.57) x10^3/uL Absolute Monos (auto) 1.14 H (0.30-0.82) x10^3/uL Absolute Nucleated RBC 0.00 (0.00-0.012) x10^3u/L Lymphocytes % 22.7 (21.8-53.1) % Monocytes % 14.3 H (5.3-12.2) % Eosinophils % 3.1 (0.8-7.0) % Basophils % 0.3 (0.2-1.2) % Absolute Granulocytes 4.72 (1.78-5.38) x10^3/uL Basophils # 0.02 (0.01-0.08) x10^3/uL Sodium (135-145) mmol/L Potassium (3.5-5.1) mmol/L Chloride (98-107) mmol/L Carbon Dioxide (22-30) mmol/L Anion Gap (5-15) MEQ/L BUN (9-20) mg/dL Creatinine (0.66-1.25) mg/dL Estimated GFR ML/MIN Glucose (74-106) mg/dL Calcium (8.4-10.2) mg/dL Total Bilirubin (0.2-1.3) mg/dL AST (17-59) U/L ALT (0-50) U/L Alkaline Phosphatase (38-126) U/L Troponin I (0.000-0.033) ng/mL Serum Total Protein (6.3-8.2) g/dL Albumin (3.5-5.0) g/dL - Progress Progress: re-examined, unchanged Air Movement: good Progress Note: Patient was stable throughout stay. He was not having any chest pain. His initial troponin was not elevated. His EKG showed no acute findings. I think the best course of action for this patient would be to repeat a troponin in 3 hours and if they are unchanged let him go home with close follow-up with his sourcing intern. Also on the differential was chest wall pain. 05/10/24 23:38 - Departure Departure Disposition: Home Clinical Impression: Chest pain Condition: Stable Critical Care Time: No Referrals: ALISIA FLETCHER MD [Primary Care Provider] - Follow up/PCP as directed Instructions: Chest Pain (DC) Additional Instructions: Call Dr. Bob for follow-up within the next week or 2 And return to the ER if symptoms worsen
[2024-05-10 21:55] LABS: ANION GAP 16.4 MEQ/L (5-15); BILIRUBIN,TOTAL 1.1 mg/dL (0.2-1.3); Calcium 8.9 mg/dL (8.4-10.2); Creatinine 1 0.76 mg/dL (0.66-1.25); EST GLOMERULAR FILTRATION RATE 95.5 ML/MIN; Total Protein 6.9 g/dL (6.3-8.2)
[2024-05-11 01:02] VITALS: BP 130/78; PULSE 63; RESP 16; O2SAT 99
--- NOTE | 2024-05-11 06:28 | XRAY ---
Indication: Left chest pain. Comparison: January 30, 2022 Portable apical lordotic chest now demonstrates minimal right base discoid atelectasis/scarring. No focal infiltrate, consolidation, or large effusion. Heart not enlarged. Bony thorax intact again with osteopenia and mild degenerative changes. Impression: Nonacute chest with chronic features.
== END 2024-05-11 01:15 | disposition home or self-care (01) ==
LOC: ED 21:10
DX: R07.9 Chest pain, unspecified (principal); R53.83 Other fatigue; E78.5 Hyperlipidemia, unspecified; E11.9 Type 2 diabetes mellitus without complications; Z79.02 Long term (current) use of antithrombotics/antiplatelets; Z79.4 Long term (current) use of insulin; Z79.899 Other long term (current) drug therapy
CPT/HCPCS: 36415; 71045; 80053; 84484; 85025; 93005; 99284; 99285

== ENCOUNTER 2024-06-08 22:07 | Emergency (ER) | payer MEDICARE, OTHER ==
[2024-06-08 22:23] VITALS: TEMP 99.2
--- NOTE | 2024-06-08 22:26 | ERPHSYRPT ---
- History of Present Illness Time Seen by Provider: 06/08/24 22:21 Historian: patient Exam Limitations: no limitations Physician History: This is a 73-year-old white male patient of primary care provider Dr. Fletcher and radiology transporter Dr. Bob who presents to the emergency department by private vehicle accompanied by family member. He has multiple visits to the emergency department secondary to chest pain. Patient has a significant history of coronary artery disease having had cardiac stents placed in the past. He is on Brilinta. He also has a history anxiety, hyperlipidemia, insulin-dependent diabetes and gastroesophageal reflux disease. Patient was seen here in our emergency department on 05/10/2024 for chest pain as well. A chest x-ray was performed and I reviewed the impression. The impression states nonacute chest with chronic features. Patient denies respiratory complaints. He has no cough, no shortness of breath and no fevers. He had a twelve-lead EKG performed on 05/12/2024 which shows normal sinus rhythm with a heart rate of 64 and prolonged MO interval as well as left anterior fascicular block. Patient states that he has had intermittent chest pain for the last several days. This afternoon, the pain was strong enough to take his breath away. His pain has improved. The pain radiated to the left arm down to his hand and slightly up into his left side of his neck. This is his typical pattern. This is the same pattern that he had for his chest pain dated 05/10/2024. The patient has an appointment to see his radiology transporter 1 week from tomorrow Timing/Duration: today Activities at Onset: rest Quality: sharpness, stabbing Location: other (Left anterior chest) Chest Pain Radiation: neck (Left neck and left arm), arm (Left neck and left arm) Severity of Pain-Max: moderate Severity of Pain-Current: mild Modifying Factors: Improves With: nothing Associated Symptoms: denies symptoms Prior Chest Pain/Cardiac Workup: cardiac cath, echocardiography, heart attack, stress test Nitro Today/Relief: no nitro taken today Aspirin Treatment Today: 81 mg x 1, provided at home Allergies/Adverse Reactions: Sulfa (Sulfonamide Antibiotics) Allergy (Mild, Verified 06/08/24 22:23) unsure has been told for years he has allergy Home Medications: Ranolazine 500 MG [Ranexa 500 MG] 500 mg PO BID 01/17/13 [History] ALPRAZolam [Alprazolam] 0.5 mg PO HS 03/09/20 [History] Aspirin EC 81 mg [Ecotrin 81 mg] 81 mg PO DAILY 03/09/20 [History] Atorvastatin Calcium [Lipitor] 40 mg PO DAILY 03/09/20 [History] Folic Acid/Vit B Complex and C [Folbee Plus Tablet] 5 mg PO DAILY 03/09/20 [History] Pantoprazole Sodium 40 mg PO DAILY 03/09/20 [History] Famotidine 20 mg [Pepcid 20 MG] 20 mg PO BID 01/30/22 [History] Insulin Degludec [Tresiba Flextouch U-100] 20 units SQ BREAKFAST 01/30/22 [History] Ticagrelor [Brilinta] 1 ea PO DAILY 01/30/22 [History] Meloxicam 7.5 mg PO DAILY 05/10/24 [History] Hx Tetanus, Diphtheria Vaccination/Date Given: No (UNKNOWN) Hx Influenza Vaccination/Date Given: No Hx Pneumococcal Vaccination/Date Given: No Travel Risk - International Travel Have you traveled outside of the country in past 3 weeks: No - Emerging Infectious Disease Are you exhibiting symptoms associated with any current EIDs: Yes - Review of Systems Constitutional: No Symptoms Eyes: No Symptoms Ears, Nose, & Throat: No Symptoms Respiratory: No Symptoms Cardiac: Chest Pain Abdominal/Gastrointestinal: No Symptoms Genitourinary Symptoms: No Symptoms Musculoskeletal: No Symptoms Skin: No Symptoms Neurological: No Symptoms Psychological: No Symptoms Endocrine: No Symptoms Hematologic/Lymphatic: No Symptoms Immunological/Allergic: No Symptoms All Other Systems: Reviewed and Negative - Past Medical History Pertinent Past Medical History: Yes Neurological History: No Pertinent History ENT History: No Pertinent History Cardiac History: Coronary Artery Disease, High Cholesterol, Myocardial Infarction ([place]) Respiratory History: No Pertinent History Endocrine Medical History: Diabetes Type II Musculoskeletal History: No Pertinent History GI Medical History: No Pertinent History, Other History: No Pertinent History, Other Psycho-Social History: No Pertinent History Male Reproductive Disorders: No Pertinent History Other Medical History: ampullary cancer - Past Surgical History Past Surgical History: Yes Neuro Surgical History: No Pertinent History Cardiac: Cardiac Stent Respiratory: No Pertinent History Gastrointestinal: Appendectomy, Cholecystectomy Genitourinary: No Pertinent History Musculoskeletal: No Pertinent History Male Surgical History: No Pertinent History Other Surgical History: 4 stents, whipple x2. stent in liver - Social History Smoking Status: Never smoker Exposure to second hand smoke: No Drug Use: none - Social Determinants of Health Will the patient participate in the screening: Yes Do you worry about a steady place to live?: No In the past 12 months,have you had to go without utilities?: No Transportation Issues: No Has anyone in your support network made you feel unsafe?: No Have you or anyone in your house had to go w/o enough food: No - Nursing Vital Signs Nursing Vital Signs: Initial Vital Signs Temperature 99.2 F 06/08/24 22:08 Pulse Rate 69 06/08/24 22:08 Respiratory Rate 18 06/08/24 22:08 Blood Pressure 136/79 06/08/24 22:08 O2 Sat by Pulse Oximetry 97 06/08/24 22:08 Pain Scale Pain Intensity 0 - Physical Exam General Appearance: no apparent distress, alert, anxiety Eye Exam: PERRL/EOMI, eyes nml inspection Ears, Nose, Throat Exam: normal ENT inspection, moist mucous membranes Neck Exam: normal inspection, non-tender, supple, full range of motion Respiratory Exam: normal breath sounds, chest tenderness (Much improvement slightly present at this time), lungs clear, airway intact, No respiratory distress Cardiovascular Exam: regular rate/rhythm, normal heart sounds, normal peripheral pulses Gastrointestinal/Abdomen Exam: soft, normal bowel sounds, No tenderness Rectal Exam: not done Back Exam: normal inspection, normal range of motion, No CVA tenderness, No vertebral tenderness Extremity Exam: normal inspection, normal range of motion, pelvis stable Neurologic Exam: alert, oriented x 3, cooperative, 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 QTc 437. No acute ischemia on today's twelve-lead EKG. Today's EKG is no different than the similar EKG performed on 05/12/2024.) Ordered Tests: Active Orders 24 hr Category Date Time Status Cash Analyst STAT Care 06/08/24 22:19 Active EKG-ER Only STAT Care 06/08/24 22:19 Active IV Insertion STAT Care 06/08/24 22:19 Active Pulse Oximetry (ED) STAT Care 06/08/24 22:19 Active CBC W DIFF Stat Lab 06/08/24 22:31 Completed CMP Stat Lab 06/08/24 22:31 Completed MAGNESIUM Stat Lab 06/08/24 22:31 Completed PROTIME WITH INR Stat Lab 06/08/24 22:31 Completed TROPONIN Q4H Lab 06/08/24 22:31 Completed TROPONIN Q4H Lab 06/09/24 00:25 Completed TROPONIN Q4H Lab 06/09/24 06:30 Ordered Medication Summary Discontinued Medications Generic Name Dose Route Start Last Admin Trade Name Freq PRN Reason Stop Dose Admin Aspirin 243 mg 06/08/24 22:19 06/08/24 22:33 Aspirin 81 Mg Tab.Chew PO 06/08/24 22:20 243 mg STAT ONE Administration Aspirin Confirm 06/08/24 22:32 Aspirin 81 Mg Tab.Chew Administered 06/08/24 22:33 Dose 243 mg .ROUTE .[facility]MED ONE Lab/Rad Data: Laboratory Result Diagrams 06/08/24 22:31 06/08/24 22:31 Laboratory Results 06/09/24 06/08/24 06/08/24 Range/Units 00:25 22:31 22:31 WBC (4.23-9.07) x10^3/uL RBC (4.63-6.08) x10^6/uL Hgb (13.7-17.5) g/dL Hct (40.1-51.0) % MCV (79.0-92.2) fL MCH (25.7-32.2) pg MCHC (32.3-36.5) g/dL RDW (11.6-14.4) % Plt Count (163-337) x10^3/uL MPV (9.4-12.4) fL Gran % (34.0-67.9) % Immature Gran % (Auto) (0.001-0.429) % Nucleat RBC Rel Count (0.00-0.2) % Eos # (Auto) (0.04-0.54) x10^3/uL Immature Gran # (Auto) (0.001-0.031) x10^3u/L Absolute Lymphs (auto) (1.32-3.57) x10^3/uL Absolute Monos (auto) (0.30-0.82) x10^3/uL Absolute Nucleated RBC (0.00-0.012) x10^3u/L Lymphocytes % (21.8-53.1) % Monocytes % (5.3-12.2) % Eosinophils % (0.8-7.0) % Basophils % (0.2-1.2) % Absolute Granulocytes (1.78-5.38) x10^3/uL Basophils # (0.01-0.08) x10^3/uL PT 10.2 (9.4-12.5) SECONDS INR 0.93 (0.8-3.0) Sodium (135-145) mmol/L Potassium (3.5-5.1) mmol/L Chloride (98-107) mmol/L Carbon Dioxide (22-30) mmol/L Anion Gap (5-15) MEQ/L BUN (9-20) mg/dL Creatinine (0.66-1.25) mg/dL Estimated GFR ML/MIN Glucose (74-106) mg/dL Calcium (8.4-10.2) mg/dL Magnesium (1.6-2.3) mg/dL Total Bilirubin (0.2-1.3) mg/dL AST (17-59) U/L ALT (0-50) U/L Alkaline Phosphatase (38-126) U/L Troponin I < 0.012 < 0.012 (0.000-0.033) ng/mL Serum Total Protein (6.3-8.2) g/dL Albumin (3.5-5.0) g/dL 06/08/24 06/08/24 Range/Units 22:31 22:31 WBC 7.9 (4.23-9.07) x10^3/uL RBC 3.64 L (4.63-6.08) x10^6/uL Hgb 11.5 L (13.7-17.5) g/dL Hct 33.4 L (40.1-51.0) % MCV 91.8 (79.0-92.2) fL MCH 31.6 (25.7-32.2) pg MCHC 34.4 (32.3-36.5) g/dL RDW 13.5 (11.6-14.4) % Plt Count 218 (163-337) x10^3/uL MPV 9.4 (9.4-12.4) fL Gran % 57.9 (34.0-67.9) % Immature Gran % (Auto) 0.3 (0.001-0.429) % Nucleat RBC Rel Count 0.0 (0.00-0.2) % Eos # (Auto) 0.27 (0.04-0.54) x10^3/uL Immature Gran # (Auto) 0.02 (0.001-0.031) x10^3u/L Absolute Lymphs (auto) 2.14 (1.32-3.57) x10^3/uL Absolute Monos (auto) 0.88 H (0.30-0.82) x10^3/uL Absolute Nucleated RBC 0.00 (0.00-0.012) x10^3u/L Lymphocytes % 27.0 (21.8-53.1) % Monocytes % 11.1 (5.3-12.2) % Eosinophils % 3.4 (0.8-7.0) % Basophils % 0.3 (0.2-1.2) % Absolute Granulocytes 4.59 (1.78-5.38) x10^3/uL Basophils # 0.02 (0.01-0.08) x10^3/uL PT (9.4-12.5) SECONDS INR (0.8-3.0) Sodium 138 (135-145) mmol/L Potassium 3.8 (3.5-5.1) mmol/L Chloride 103 (98-107) mmol/L Carbon Dioxide 22 (22-30) mmol/L Anion Gap 17.8 H (5-15) MEQ/L BUN 13 (9-20) mg/dL Creatinine 0.67 (0.66-1.25) mg/dL Estimated GFR 99.2 ML/MIN Glucose 303 H (74-106) mg/dL Calcium 9.2 (8.4-10.2) mg/dL Magnesium 2.0 (1.6-2.3) mg/dL Total Bilirubin 1.00 (0.2-1.3) mg/dL AST 70 H (17-59) U/L ALT 68 H (0-50) U/L Alkaline Phosphatase 116 (38-126) U/L Troponin I (0.000-0.033) ng/mL Serum Total Protein 6.9 (6.3-8.2) g/dL Albumin 4.0 (3.5-5.0) g/dL - Progress Progress: improved Air Movement: good, poor Progress Note: 06/08/24 22:26 My medical decision making of the assignment of moderate complexity is based on review of the patient's past medical history, review of the patient's medication list, review of patient drug allergy list, history present illness and physical findings on examination. The workup includes placement of a intravenous line, CBC, CMP, magnesium level, troponin level, twelve-lead EKG. We will provide the patient with 3-81 mg aspirin. Patient took 1 baby aspirin prior to arrival. Differential diagnosis includes but is not limited to muscle skeletal pain, anxiety about health, myocardial infarction, electrolyte abnormalities, a rrhythmias 06/09/24 01:10 I interpreted the patient's laboratory data results. Based on the laboratory data results, there are no acute, emergent medical issues. He does have mildly elevated transaminases. When I look back and compare old labs to [facility]'s labs, he has had mildly elevated transaminases in the past. The repeat, second troponin is normal. I interpreted the repeat twelve-lead EKG that was performed on 06/09/2024 at 0028. The heart rate is 56 bpm. The pattern is normal sinus rhythm. Patient has left axis deviation and prolonged MO interval. There is no evidence of any acute ischemia. Blood Culture(s) Obtained: No Antibiotics given: No Medical Desision Making - Independent Historian Additional History obtained from: Family - Diagnostic Testing Diagnostic test were ordered, analyzed, and reviewed by me: Yes - Risk of complications Low Risk: Low risk of morbidity from additional dx testing or treatment - Departure Departure Disposition: Home Clinical Impression: Nonspecific chest pain Condition: Stable Critical Care Time: No Referrals: ALISIA FLETCHER MD [Primary Care Provider] - Follow up/PCP as directed Additional Instructions: Call your primary care provider and your radiology transporter today, 06/09/2024, to make them aware that you are having these symptoms and that you came to the emergency department this evening. Continue all your medications as prescribed. Ask your radiology transporter if he wants to see you earlier than 1 week in follow-up.
[2024-06-08] MEDS ORDERED: BABY ASPIRIN 81 MG CHEW ONE (22:32)
[2024-06-08] MEDS: BABY ASPIRIN 81 MG CHEW PO ONE (22:33)
[2024-06-08 22:34] LABS: Absolute Neutrophil Ct (ANC) 4.59 x10^3/uL (1.78-5.38); BASOPHIL % 0.3 % (0.2-1.2); Basophil (Absolute #) 0.02 x10^3/uL (0.01-0.08); Eosinophil % 3.4 % (0.8-7.0); Eosinophil (Absolute #) 0.27 x10^3/uL (0.04-0.54); Hematocrit 33.4 % (40.1-51.0); Hemoglobin 11.5 g/dL (13.7-17.5); IMMATURE GRAN # 0.02 x10^3u/L (0.001-0.031); IMMATURE GRAN % 0.3 % (0.001-0.429); Lymphocyte (Absolute #) 2.14 x10^3/uL (1.32-3.57); Mean Cell Volume 91.8 fL (79.0-92.2); Mean Corpuscular Hemoglobin 31.6 pg (25.7-32.2); Mean Corpuscular Hgb Concent. 34.4 g/dL (32.3-36.5); Mean Platelet Volume 9.4 fL (9.4-12.4); Monocyte (Absolute #) 0.88 x10^3/uL (0.30-0.82); Monocytes % 11.1 % (5.3-12.2); Neutrophil % 57.9 % (34.0-67.9); Platelet Count 218 x10^3/uL (163-337); Red Blood Count 3.64 x10^6/uL (4.63-6.08); Red Cell Distribution Width 13.5 % (11.6-14.4); White Blood Count 7.9 x10^3/uL (4.23-9.07)
[2024-06-08 22:53] LABS: ANION GAP 17.8 MEQ/L (5-15); Calcium 9.2 mg/dL (8.4-10.2); Creatinine 1 0.67 mg/dL (0.66-1.25); EST GLOMERULAR FILTRATION RATE 99.2 ML/MIN; Potassium 3.8 mmol/L (3.5-5.1); Total Protein 6.9 g/dL (6.3-8.2)
[2024-06-09 00:50] LABS: INR 0.93 (0.8-3.0); PROTIME 10.2 SECONDS (9.4-12.5)
[2024-06-09 01:04] VITALS: O2SAT 97
[2024-06-09 01:45] VITALS: BP 116/74; PULSE 56; RESP 19
== END 2024-06-09 01:46 | disposition home or self-care (01) ==
LOC: ED 22:07
DX: R07.9 Chest pain, unspecified (principal); E78.5 Hyperlipidemia, unspecified; E11.9 Type 2 diabetes mellitus without complications; Z79.02 Long term (current) use of antithrombotics/antiplatelets; Z79.4 Long term (current) use of insulin; Z79.899 Other long term (current) drug therapy
CPT/HCPCS: 36415; 80053; 83735; 84484; 85025; 85610; 93005; 93041; 94760; 99284; A9270-GY